=== PATIENT | male | born 1965 | race Caucasian/White ===

== ENCOUNTER 2020-01-03 12:36 | Emergency (ER) | payer OTHER, SELFPAY ==
[~2020-01-03] VITALS: Ht 182.9 cm; Wt 117.9 kg
[2020-01-03 12:36] VITALS: BP 140/69
[~2020-01-03 12:36] MED LIST: CITA10TA11 PO; ESK300 PO; HUM SUBQ; LEVAMIR; METF500T2 PO
--- NOTE | 2020-01-03 12:40 | NUR ---
54/M brought in by ambulance from [facility] for cough x1 month. Pt stated his facility wants him to be tested for COVID-19. Pt denies fever/chills, CP/SOB, n/v/d, abd pain or sore throat. Pt awake and alert, skin normal color warm and dry, rr even and unlabored. Lung sounds clear BL. S1S2 present, HR 104, ST on monitor. R BKA noted. Hx HTN, DM, HLD, R BKA.
--- NOTE | 2020-01-03 13:10 | NUR ---
Pt refusing to collect urine sample at this time, pt given water.
--- NOTE | 2020-01-03 13:10 | NUR ---
Attempted to collect blood via IV start, able to collect some blood tests but not all, laborer stores Pily made aware.
[2020-01-03 14:05] LABS: BASOPHILS # (AUTO) 0.1 K/uL (0.00-0.22); BASOPHILS % (AUTO) 1.1 % (0.0-2.0); EOSINOPHILS # (AUTO) 0.1 K/uL (0-0.4); EOSINOPHILS % (AUTO) 2.3 % (0.0-4.0); HEMATOCRIT 41.2 % (36-52); LYMPHOCYTES # (AUTO) 1.3 K/uL (2.0-11.5); LYMPHOCYTES % (AUTO) 20.7 % (20.5-51.1); MEAN CORPUSCULAR HEMOGLOBIN 33 pg (27-31); MEAN CORPUSCULAR HGB CONC 34 g/dL (33-37); MEAN CORPUSCULAR VOLUME 95.4 fL (80-94); MONOCYTES # (AUTO) 0.3 K/uL (0.8-1.0); MONOCYTES % (AUTO) 5.5 % (1.7-9.3); NEUTROPHILS # (AUTO) 4.4 K/uL (1.8-7.7); NEUTROPHILS % (AUTO) 70.4 % (42.2-75.2); PLATELET COUNT (AUTO) 223 K/uL (140-450); RED BLOOD CELL COUNT(AUTO) 4.31 MIL/uL (4.20-6.10); WHITE BLOOD COUNT (AUTO) 6.2 K/uL (4.8-10.8)
[2020-01-03 14:13] LABS: ANION GAP 15.1 (8-16); CARBON DIOXIDE 27.9 mmol/L (21-32); CREATININE 1.5 mg/dL (0.6-1.3)
[2020-01-03 14:19] LABS: TOTAL BILIRUBIN 0.6 mg/dL (0.0-1.0)
[2020-01-03] MEDS ORDERED: LEVOFLOXACIN 500 MG TAB PO ONE (14:20)
[2020-01-03] MEDS ORDERED: INSULIN REGULAR, HUMAN 100 UNIT/ML VIAL SUBQ ONE (14:20)
[2020-01-03] MEDS ORDERED: PROMETH/CODEINE 6.25-10MG/5ML 5 ML UDC PO ONE (14:20)
[2020-01-03] MEDS ORDERED: NACL 0.9% 500 ML IV ONE (14:20)
[2020-01-03 14:33] LABS: PROTHROMBIN TIME 9.2 secs (10.8-13.4)
[2020-01-03 15:15] LABS: APPEARANCE,URINE SL CLOUDY (CLEAR); BILIRUBIN,URINE NEGATIVE (NEGATIVE); BLOOD, URINE NEGATIVE (NEGATIVE); COLOR,URINE YELLOW (YELLOW); LEUKOCYTE ESTERASE ,URINE NEGATIVE (NEGATIVE); NITRITE, URINE NEGATIVE (NEGATIVE); PH,URINE 5.5 (5.0-9.0); UGLUCOSE 2+ (NEGATIVE)
[2020-01-03 15:57] VITALS: BP 135/90
--- NOTE | 2020-01-03 15:57 | NUR ---
Patient discharged with v/s stable. Written and verbal after care instructions given and explained. Gave report to Nicole from [facility]. Patient alert, oriented and verbalized understanding of instructions. Wheel Chair Assisted with to group home [facility]. All questions addressed prior to discharge. ID band removed. Patient advised to follow up with PMD. Rx of tessalon perles, albuterol inh, levaquin given. Patient educated on indication of medication including possible reaction and side effects. Opportunity to ask questions provided and answered.
== END 2020-01-03 15:57 | disposition home or self-care (01) ==
LOC: MED 12:36 → EEVIPCON 12:36 → MED 15:57
DX: J44.1 Chronic obstructive pulmonary disease with (acute) exacerbation (principal); Z20.828 Contact with and (suspected) exposure to other viral communicable diseases; E11.65 Type 2 diabetes mellitus with hyperglycemia; F17.210 Nicotine dependence, cigarettes, uncomplicated; I10 Essential (primary) hypertension; N17.9 Acute kidney failure, unspecified; Z72.0 Tobacco use; Z71.6 Tobacco abuse counseling
CPT/HCPCS: 36415; 71045; 80053; 81003; 83605; 83880; 85025; 85610; 85730; 87040; 87086; 87635; 93005; 96372; 99285; J1815; J7030; Q0092; 99284

== ENCOUNTER 2021-05-29 14:44 | Inpatient (IN) | payer OTHER, SELFPAY ==
[~2021-05-29] VITALS: Ht 188 cm; Wt 98.9 kg
[~2021-05-29 14:44] MED LIST changes: -CITA10TA11 PO; +CITA20TA15 PO; +Gauze TP; -HUM SUBQ; -LEVAMIR; +LOV40I SUBQ; -METF500T2 PO; +ROC1PM IV
[2021-05-29 14:51] VITALS: BP 152/83
--- NOTE | 2021-05-29 14:57 | NUR ---
PT W/C ASSISTED TO LOBBY
[2021-05-29] MEDS ORDERED: VANCOMYCIN PER PHARMACY MC PRN ×2 (15:50→17:50)
[2021-05-29] MEDS ORDERED: VANCOMYCIN 1GM/DEXT 5% PREMIX 200 ML IV ONE (15:50)
[2021-05-29] MEDS ORDERED: NACL 0.9% 1,000 ML IV SCH (15:50)
[2021-05-29] MEDS ORDERED: PIPERACILLIN/TAZOBACTAM 3.375 GM in DEXTROSE 5% 50 ML IV ONE (15:50)
--- NOTE | 2021-05-29 15:57 | NUR ---
Patient wheelchair to [facility]
--- NOTE | 2021-05-29 16:00 | NUR ---
Blood cultures and sample given to CPT Nat
--- NOTE | 2021-05-29 16:00 | NUR ---
Nicolasa amezcua handed to CPT Nat at ER bedside.
--- NOTE | 2021-05-29 16:06 | NUR ---
55 y/o M BIB self from the streets c/o LLE open sores and pain x 2-3 days. Patient A&Ox4, wheelchair assisted, presents with redness, pain and swelling to LLE. Patient with L toe amputation and R foot amputation. Patient reports 4/10 pain and also states a diaper rash due to sleeping in the sun. Patient denies CP, SOB, fever, chills, N/V/D, headache. warehouse logistics coordinator in place. Bed locked in lowest position, side rails x 1, call light in reach. PMH: HTN, DM, COPD, bipolar d/o Meds: Metformin, insulin humalog, Albuterol, ambien, Xanax, Lipitor NKA
--- NOTE | 2021-05-29 16:06 | NUR ---
PT BACK FROM RAD, TAKEN TO BED 9
[2021-05-29] MEDS ORDERED: PIPERACILLIN/TAZOBACTAM 3.375 GM VIAL IV ONE (16:24)
[2021-05-29 16:55] LABS: BASOPHILS # (AUTO) 0.1 K/uL (0.00-0.22); BASOPHILS % (AUTO) 0.5 % (0.0-2.0); EOSINOPHILS # (AUTO) 0.1 K/uL (0-0.4); EOSINOPHILS % (AUTO) 1.3 % (0.0-4.0); HEMOGLOBIN 12.8 g/dL (12.0-18.0); LYMPHOCYTES # (AUTO) 1.6 K/uL (2.0-11.5); LYMPHOCYTES % (AUTO) 15.1 % (20.5-51.1); MEAN CORPUSCULAR HEMOGLOBIN 29 pg (27-31); MEAN CORPUSCULAR HGB CONC 34 g/dL (33-37); MEAN CORPUSCULAR VOLUME 87.1 fL (80-94); MONOCYTES # (AUTO) 0.6 K/uL (0.8-1.0); MONOCYTES % (AUTO) 5.8 % (1.7-9.3); NEUTROPHILS # (AUTO) 8.4 K/uL (1.8-7.7); NEUTROPHILS % (AUTO) 77.3 % (42.2-75.2); PLATELET COUNT (AUTO) 373 K/uL (140-450); RED BLOOD CELL COUNT(AUTO) 4.36 MIL/uL (4.20-6.10); RED CELL DISTRIBUTION WIDTH 14.6 % (11.6-13.7); WHITE BLOOD COUNT (AUTO) 10.8 K/uL (4.8-10.8)
[2021-05-29] MEDS ORDERED: VANCOMYCIN 1,000 MG in DEXTROSE 5% 250 ML IV ONE (17:05)
[2021-05-29 17:21] LABS: ALBUMIN 3.4 g/dL (3.4-5.0); ANION GAP 10.6 (8-16); CARBON DIOXIDE 26.9 mmol/L (21-32); CREATININE 1.1 mg/dL (0.6-1.3); POTASSIUM 3.5 mmol/L (3.5-5.1); TOTAL BILIRUBIN 0.9 mg/dL (0.0-1.0)
[2021-05-29] MEDS ORDERED: ZOLPIDEM 5 MG TAB PO PRN (17:50)
[2021-05-29] MEDS ORDERED: MAG SULF 2000 MG/WATER PREMIX 50 ML IV PRN (17:50)
[2021-05-29] MEDS ORDERED: MAGNESIUM OXIDE 400 MG TAB PO PRN (17:50)
[2021-05-29] MEDS ORDERED: ACETAMINOPHEN 325 MG TAB PO PRN (17:50)
[2021-05-29] MEDS ORDERED: LORazepam 1 MG TAB PO PRN (17:50)
[2021-05-29] MEDS ORDERED: MORPHINE SULFATE 4 MG/ML SYR IVP PRN (17:50)
[2021-05-29] MEDS ORDERED: ONDANSETRON 4 MG/2 ML VIAL IVP PRN (17:50)
[2021-05-29] MEDS ORDERED: POTASSIUM CHLORIDE 10 MEQ TABER PO PRN (17:50)
[2021-05-29] MEDS ORDERED: KCL 20 MEQ/WATER INJ PREMIX 200 ML IV PRN (17:50)
--- NOTE | 2021-05-29 17:53 | NUR ---
PATIENT ADMITTED TO HOSPITAL, MED/SURG HOLD STAYING IN BED 09 UNTIL BED BECOMES AVAILABLE.
[2021-05-29] MEDS ORDERED: VANCOMYCIN 1,000 MG VIAL ONE (18:11)
[2021-05-29] MEDS: NACL 0.9% 1,000 ML IV SCH (18:40)
--- NOTE | 2021-05-29 19:20 | NUR ---
Report and transfer of care endorsed to ANDRADE Brown.
--- NOTE | 2021-05-29 20:00 | NUR ---
sitting up in BED, DIET TRAY SERVED. VOICES NO COMPLAINTS
--- NOTE | 2021-05-29 23:44 | NUR ---
RESTING IN BED WITH EYES CLOSED, RESPIRATIONS REGULAR AND UNLABORED
--- NOTE | 2021-05-30 02:00 | NUR ---
AWAKE AND ALERT. DENIES PAIN OR DISCOMFORT. SANDWICH SERVED
[2021-05-30] MEDS ORDERED: PIPERACILLIN/TAZOBACTAM 3.375 GM VIAL IV ONE ×2 (03:03→06:06)
[2021-05-30] MEDS ORDERED: VANCOMYCIN 1,000 MG VIAL ONE (03:03)
--- NOTE | 2021-05-30 04:15 | NUR ---
AWAKE, HAS BEEN INCONTINENT OF LARGE AMOUNT OF URINE. IS BECOMING AGITATED. UP TO SIDE OF BED, RESTLESS. VERY VERBAL AMD BELIGERANT. LINENS CHANGED, REFUSES TO GET INTO PATIENT GOWN.
[2021-05-30] MEDS: PIPERACILLIN/TAZOBACTAM 3.375 GM in DEXTROSE 5% 50 ML IV SCH ×5 (04:59→23:54)
[2021-05-30] MEDS: VANCOMYCIN 1,000 MG in DEXTROSE 5% 250 ML IV SCH ×4 (05:00→20:59)
[2021-05-30] MEDS: NACL 0.9% 1,000 ML IV SCH ×2 (06:20→17:15)
[2021-05-30 06:51] LABS: BASOPHILS # (AUTO) 0.1 K/uL (0.00-0.22); BASOPHILS % (AUTO) 0.8 % (0.0-2.0); EOSINOPHILS # (AUTO) 0.2 K/uL (0-0.4); EOSINOPHILS % (AUTO) 2.7 % (0.0-4.0); HEMATOCRIT 38.7 % (36-52); LYMPHOCYTES # (AUTO) 1.4 K/uL (2.0-11.5); LYMPHOCYTES % (AUTO) 15.8 % (20.5-51.1); MEAN CORPUSCULAR HEMOGLOBIN 29 pg (27-31); MEAN CORPUSCULAR HGB CONC 34 g/dL (33-37); MEAN CORPUSCULAR VOLUME 87.2 fL (80-94); MONOCYTES # (AUTO) 0.5 K/uL (0.8-1.0); MONOCYTES % (AUTO) 5.2 % (1.7-9.3); NEUTROPHILS # (AUTO) 6.6 K/uL (1.8-7.7); NEUTROPHILS % (AUTO) 75.5 % (42.2-75.2); PLATELET COUNT (AUTO) 319 K/uL (140-450); RED BLOOD CELL COUNT(AUTO) 4.43 MIL/uL (4.20-6.10); RED CELL DISTRIBUTION WIDTH 14.4 % (11.6-13.7); WHITE BLOOD COUNT (AUTO) 8.7 K/uL (4.8-10.8)
[2021-05-30 07:07] LABS: CARBON DIOXIDE 26.8 mmol/L (21-32); CREATININE 1.1 mg/dL (0.6-1.3); POTASSIUM 3.8 mmol/L (3.5-5.1)
--- NOTE | 2021-05-30 07:12 | NUR ---
PATIENT HAS BEEN SCREENED AND CATEGORIZED LOW NUTRITION RISK. PATIENT WILL BE SEEN WITHIN 7 DAYS OF ADMISSION. 06/06/21 KAITLIN SALAZAR MS, RDN
--- NOTE | 2021-05-30 07:15 | NUR ---
REPORT RECEIVED FROM KANIKA ZAFAR FOR CONTINUITY OF CARE
--- NOTE | 2021-05-30 07:40 | NUR ---
Patient will be admitted to care of DR VELA. Admited to [facility]. Will go to room 111-B. Belongings list completed. Report to TEJAS ZAFAR.
--- NOTE | 2021-05-30 07:40 | NUR ---
PT ARRIVED TO UNIT VIA WHEELCHAIR. WHEELCHAIR IS THE PTS OWN BELONGINGS. PT AMBULATED TO THE BED WITH ASSISTANCE. PT IS TALKING TO HIMSELF AND APPEARS TO BE CONFUSED. A&OX2. ON RA WITH BREATHING UNLABORED. SKIN IS WARM AND DRY. RIGHT BKA. LEFT LE TOES AMPUTATED. LEFT LEG CELLULITIS WITH OPEN WOUND, PEDIATRIC AUDIOLOGIST. IV IS IN THE RIGHT AC 20 GAUGE SALINE LOCKED. PT IS STABLE AT THIS TIME. PLAN OF CARE DISCUSSED.
[2021-05-30 08:00] VITALS: BP 125/80
[2021-05-30] MEDS: DOCUSATE SODIUM 100 MG GELCAP PO SCH (09:27)
[2021-05-30] MEDS: ENOXAPARIN 40 MG/0.4 ML SYR SUBQ SCH (09:30)
--- NOTE | 2021-05-30 09:33 | NUR ---
SPOKE TO PHARMACIST, RICK, AND HE INSTRUCTED ME TO GIVE THE VANCO ABX AT 1300 INSTEAD OF 10 AM SINCE THE CARE ATTENDANT NURSE GAVE THE MEDICATION LATE.
--- NOTE | 2021-05-30 10:00 | NUR ---
PICTURES WERE TAKEN OF LEFT LOWER EXTREMITY AND LEFT FOOT. OPEN WOUNDS WERE NOTED. CLEANSED WITH NS AND PATTED DRY. WOUNDS WERE LEFT REJI. MILD PAIN NOTED ON PALPATION OF WOUND.
--- NOTE | 2021-05-30 11:00 | NUR ---
CALLED SECURITY TO PLACEMENT MANAGER POCKET KNIFE THAT WAS FOUND ON PT'S WHEELCHAIR. KNIFE WAS COLLECTED BY SECURITY AND STICKER WITH NAME WAS PLACED ON BAG.
--- NOTE | 2021-05-30 11:33 | NUR ---
ROUNDED ON PT. HE IS TALKING TO HIMSELF, MUMBLING. PT IS CONFUSED. A&OX2. KNOWS HIS NAME AND WHERE HE IS AT. NO DISTRESS NOTED. PT DENIES PAIN.
[2021-05-30] MEDS: HYDROcodone/APAP 5/325 MG 1 TAB TAB PO PRN ×2 (12:09→18:09)
--- NOTE | 2021-05-30 12:09 | NUR ---
PT STATES HE HAS PAIN AT A SCALE OF 6/10. PAIN IS IN HIS LEFT LOWER EXTREMITY AND ACHING. PT WAS GIVEN NORCO FOR PAIN.
--- NOTE | 2021-05-30 13:44 | NUR ---
ROUNDED ON PT. HE IS TALKING ON THE PHONE TO HIS BROTHER. NO DISTRESS NOTED. WOUND WAS CLEANSED WITH NS AND PATTED DRY. 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 PT IS STABLE. DENIES PAIN.
--- NOTE | 2021-05-30 15:30 | NUR ---
PT WAS GIVEN BED BATH BY KAMILLA WILKINSON. PT IS FOUL SMELLING PRIOR TO BATH. PT REFUSED CERTAIN AREAS OF BED BATH. PT IS DONE AND NOW CALLING FRIEND ON PHONE.
[2021-05-30 16:00] VITALS: BP 137/71
--- NOTE | 2021-05-30 17:30 | NUR ---
PT IS AWAKE AND CONFUSED. TALKING TO SELF BUT ABLE TO MAKE NEEDS KNOWN. BREATHING IS UNLABORED ON RA. PT DENIES PAIN. WILL CONTINUE TO MONITOR.
--- NOTE | 2021-05-30 18:09 | NUR ---
PT STATES HE HAS PAIN AT A SCALE OF 6/10 IN THE LEFT LOWER EXTREMITY. PT RECEIVED NORCO FOR PAIN ORDERED. WILL MONITOR PAIN.
--- NOTE | 2021-05-30 19:05 | NUR ---
ENDORSED PT TO DIALYSIS PATIENT CARE TECHNICIAN NURSE FOR CONTINUITY OF CARE. PT IS STABLE AT THIS TIME. PLAN OF CARE DISCUSSED.
[2021-05-30 20:00] VITALS: BP 136/72
--- NOTE | 2021-05-30 20:00 | NUR ---
RECEIVED BEDSIDE REPORT FROM DAY RN FOR CONTINUITY OF CARE. PATIENT ALERT, AWAKE , ORIENTED X3. NO SIGN AND SYMPTOMS OF DISTRESS NOTED AND NO COMPLAIN AT THIS TIME. FALL PRECAUTION IMPLEMENTED. VSS, AFEBRILE, SATING 98% ON RA. CALL LIGHT WITHIN REACH. WILL CONTINUE POC AND OBSERVATION.
--- NOTE | 2021-05-30 22:00 | NUR ---
DUE MEDICATIONS GIVEN ORDERED AND PT TOLERATED IT WELL. NO ADVERSE DRUG REACTION NOTED. WILL CONTINUE TO OBSERVE THE PATIENT.
--- NOTE | 2021-05-31 02:13 | NUR ---
PATIENT ASLEEP AT THIS TIME. VISIBLE CHEST RISE AND FALL NOTED. SAFETY MEASURES IN PLACE.
[2021-05-31 04:00] VITALS: BP 142/79
[2021-05-31] MEDS: VANCOMYCIN 1,000 MG in DEXTROSE 5% 250 ML IV SCH ×2 (04:49→14:55)
[2021-05-31] MEDS: NACL 0.9% 1,000 ML IV SCH (06:15)
[2021-05-31] MEDS: PIPERACILLIN/TAZOBACTAM 3.375 GM in DEXTROSE 5% 50 ML IV SCH ×2 (06:15→13:39)
--- NOTE | 2021-05-31 06:22 | NUR ---
NO ACUTE EVENT THROUGHOUT THE NIGHT. NOT IN ANY DISTRESS AND NO COMPLAIN AT THIS TIME. ALL NEEDS ATTENDED. CALL LIGHT WITHIN REACH WILL ENDORSE THE PT TO THE ONCOMING RN FOR CONTINUITY OF CARE.
[2021-05-31 07:01] LABS: BASOPHILS # (AUTO) 0.1 K/uL (0.00-0.22); BASOPHILS % (AUTO) 1.2 % (0.0-2.0); EOSINOPHILS # (AUTO) 0.3 K/uL (0-0.4); EOSINOPHILS % (AUTO) 3.9 % (0.0-4.0); HEMATOCRIT 35.8 % (36-52); HEMOGLOBIN 11.9 g/dL (12.0-18.0); LYMPHOCYTES # (AUTO) 1.6 K/uL (2.0-11.5); LYMPHOCYTES % (AUTO) 24.1 % (20.5-51.1); MEAN CORPUSCULAR HEMOGLOBIN 29 pg (27-31); MEAN CORPUSCULAR HGB CONC 33 g/dL (33-37); MEAN CORPUSCULAR VOLUME 88.2 fL (80-94); MONOCYTES # (AUTO) 0.4 K/uL (0.8-1.0); MONOCYTES % (AUTO) 6.8 % (1.7-9.3); NEUTROPHILS # (AUTO) 4.2 K/uL (1.8-7.7); PLATELET COUNT (AUTO) 267 K/uL (140-450); RED BLOOD CELL COUNT(AUTO) 4.06 MIL/uL (4.20-6.10); RED CELL DISTRIBUTION WIDTH 14.5 % (11.6-13.7); WHITE BLOOD COUNT (AUTO) 6.5 K/uL (4.8-10.8)
[2021-05-31 07:15] LABS: ANION GAP 7.6 (8-16); CARBON DIOXIDE 29.5 mmol/L (21-32); CREATININE 1.1 mg/dL (0.6-1.3); POTASSIUM 4.1 mmol/L (3.5-5.1)
--- NOTE | 2021-05-31 07:15 | NUR ---
RECEIVED BEDSIDE REPORT FROM UNIX CONSULTANT NURSE FOR CONTINUITY OF CARE. PT IS ASLEEP. CHEST RISE AND FALL IS SYMMETRICAL. ON RA WITH BREATHING UNLABORED. URINAL AT BEDSIDE FOR VOIDING. PERIODS OF INCONTINENCE. SKIN IS WARM AND DRY. RIGHT BKA AND LEFT EXTREMITY TOES AMPUTATED. LEFT LOWER EXTREMIITY OPEN WOUND WITH CELLULITIS NOTED. IV IS IN THE LEFT AC 20 GAUGE RUNNING FLUIDS ORDERED. PT IS STABLE AT THIS TIME. PLAN OF CARE DISCUSSED.
--- NOTE | 2021-05-31 07:23 | NUR ---
ENDORSED PATIENT TO DAY RN FOR CONTINUITY OF CARE. PATIENT STABLE. SIGNING OFF.
[2021-05-31 08:00] VITALS: BP 158/87
[2021-05-31] MEDS: DOCUSATE SODIUM 100 MG GELCAP PO SCH (08:24)
[2021-05-31] MEDS: ENOXAPARIN 40 MG/0.4 ML SYR SUBQ SCH (08:25)
--- NOTE | 2021-05-31 10:00 | NUR ---
PT WAS BEING CHANGED AND REPOSITIONED DUE TO BOWEL MOVEMENT. PT ACTING VERY ERRATIC. PT SCREAMING, TALKING TO HIMSELF, AND JUMPING OUT OF BED TO WHEELCHAIR. PT WAS THREATENING STAFF AND SECURITY WAS CALLED. SECURITY AT BEDSIDE. PT IN WHEELCHAIR TALKING TO SELF.
[2021-05-31] MEDS: HYDROcodone/APAP 5/325 MG 1 TAB TAB PO PRN (10:16)
--- NOTE | 2021-05-31 10:16 | NUR ---
PT WAS GIVEN NORCO FOR PAIN ORDERED. PT STATED PAIN WAS IN HIS LEFT FOOT AT A SCALE OF 6/10. WILL CONTINUE TO MONITOR PAIN.
--- NOTE | 2021-05-31 12:00 | NUR ---
PT IS IN WHEELCHAIR GOING AROUND UNIT WITH MASK ON. NO DISTRESS NOTED. PT DENIES PAIN. PT IS TALKING TO HIMSELF AND APPEARS CONFUSED. DRY DIAPER IN PLACE. WILL CONTINUE TO MONITOR.
[2021-05-31 14:00] VITALS: BP 128/65
--- NOTE | 2021-05-31 14:04 | NUR ---
PT WAS VERY AGITATED AND STATED HE WAS HAVING ANXIETY. PT THREW ITEMS ALL OVER ROOM AND WAS UP IN WHEELCHAIR. PT WAS GIVEN ATIVAN FOR ANXIETY ORDERED. BP WAS 145/75 PRIOR TO ADMINISTRATION OF MEDICATION.
--- NOTE | 2021-05-31 14:45 | NUR ---
PT PULLED OUT IV IN THE LEFT AC. BLEEDING WAS CONTROLLED. NEW IV WAS PLACED ON THE LEFT FOREARM 22 GAUGE. PATENT AND INTACT. VANCOMYCIN ABX WILL BE STARTED SHORTLY.
[2021-05-31] MEDS ORDERED: SULF-58 PO (15:17)
[2021-05-31] MEDS ORDERED: AMOX-999 PO (15:17)
--- NOTE | 2021-05-31 17:45 | NUR ---
PT WAS INFORMED OF DISCHARGE BY DOCTOR. PAPER WORK WAS COMPLETED AND PT VERBALIZED UNDERSTANDING. ASKED PT IF HE WOULD LIKE ME TO CALL HIS BROTHER TO PICK HIM UP AND PT DENIED. PT STATED HE ALREADY CALLED HIM. OFFERED HOMELESS RESOURCES AND PT DENIED. PT WAS GIVEN CLOTHING PERSONAL CLOTHING WAS SOILED. PT COLLECTED PERSONAL BELONGINGS. Addendum: 05/31/21 at 1840 by Nicole Monsivais RN CHARGE NURSETOMMY RN, AWARE.
--- NOTE | 2021-05-31 18:15 | NUR ---
DISCHARGE INSTRUCTIONS WERE PROVIDED AND PT VERBALIZED UNDERSTANDING. IV WAS REMOVED AND BLEEDING WAS CONTROLLED. ID BAND WAS REMOVED. VS WERE STABLE. PT IS STABLE AT THIS TIME. PT IS ALERT AND AWAKE. DISCHARGED WITH WHEELCHAIR BY ARCO APPLIQUE SEWER.
--- NOTE | 2021-06-01 08:30 | NUR ---
WOUND CONSULT NOT DONE. PT. DISCHARGED.
== END 2021-05-31 18:35 | disposition home or self-care (01) | DRG 383 ==
LOC: MED 14:44 → MTU 17:53 → EDUNIT# 17:53 → MTU 05-30 06:38
PROVIDERS: ADMIT Hospitalist; ATTEND Hospitalist
DX: L03.116 Cellulitis of left lower limb (principal); E11.42 Type 2 diabetes mellitus with diabetic polyneuropathy; E11.51 Type 2 diabetes mellitus with diabetic peripheral angiopathy without gangrene; J44.9 Chronic obstructive pulmonary disease, unspecified; I10 Essential (primary) hypertension; F31.9 Bipolar disorder, unspecified; Z20.822 Contact with and (suspected) exposure to COVID-19; E78.5 Hyperlipidemia, unspecified; Z89.511 Acquired absence of right leg below knee; Z79.84 Long term (current) use of oral hypoglycemic drugs; Z89.422 Acquired absence of other left toe(s)
CPT/HCPCS: 36415; 73590; 80048; 80053; 80202; 83605; 85025; 85651; 86140; 87040; 87081; 96365; 96367; 99285; J1650; J2543; J3370; J7060

== ENCOUNTER 2021-07-05 17:29 | Emergency (ER) | payer OTHER, SELFPAY ==
[~2021-07-05] VITALS: Ht 165.1 cm; Wt 77.1 kg
[~2021-07-05 17:29] MED LIST changes: +AMOX-999 PO; -Gauze TP; -LOV40I SUBQ; -ROC1PM IV; +SULF-58 PO
--- NOTE | 2021-07-05 17:32 | NUR ---
BIBA TO BED
[2021-07-05 17:39] VITALS: BP 152/91
--- NOTE | 2021-07-05 17:42 | NUR ---
ERMD AT BEDSIDE EXAMINING PT
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
--- NOTE | 2021-07-05 18:41 | NUR ---
PT URINATED 800 ML. PT IS IN BEDREST.
[2021-07-05 19:22] VITALS: BP 152/91
--- NOTE | 2021-07-05 19:22 | NUR ---
Patient discharged with v/s stable. Written and verbal after care instructions given and explained. Patient alert, oriented and verbalized understanding of instructions. Wheel Chair Assisted with to LOBBY. All questions addressed prior to discharge. ID band removed. Patient advised to follow up with PMD. Opportunity to ask questions provided and answered.
== END 2021-07-05 19:22 | disposition home or self-care (01) ==
LOC: MED 17:29
DX: S01.419A Laceration without foreign body of unspecified cheek and temporomandibular area, initial encounter (principal); E11.9 Type 2 diabetes mellitus without complications; I10 Essential (primary) hypertension; Y04.8XXA Assault by other bodily force, initial encounter; Y93.89 Activity, other specified; Y92.89 Other specified places as the place of occurrence of the external cause; Y99.8 Other external cause status
CPT/HCPCS: 70450; 99284

== ENCOUNTER 2021-07-19 21:59 | Emergency (ER) | payer OTHER ==
[~2021-07-19] VITALS: Ht 165.1 cm; Wt 77.1 kg
[2021-07-19 22:00] VITALS: BP 135/85
--- NOTE | 2021-07-19 22:02 | NUR ---
PT OFFLOADED TO LOBBY IN STABLE CONDITION.
--- NOTE | 2021-07-19 23:50 | NUR ---
PT W/C ASSISTED TO BED 06.
--- NOTE | 2021-07-20 00:07 | NUR ---
BIBA FROM HOME C/O BILATERAL LEG PAIN. PER PT RAN OUT OF GABAPENTIN, UNABLE TO SEE PCP. PT IS IN OUT OF SLEEP. MEDHX- DM, COPD, BIPOLAR, SCHIZOPHRENIA, RT BKA AMUPUTATION LEFT TOES AMPUTATION NKA BLOOD SUGAR 172
[2021-07-20] MEDS ORDERED: KETOROLAC 60 MG/2 ML VIAL IM ONE (00:25)
[2021-07-20] MEDS ORDERED: GABA300C PO (00:47)
[2021-07-20 01:15] VITALS: BP 110/77
--- NOTE | 2021-07-20 01:15 | NUR ---
Patient discharged with v/s stable. Written and verbal after care instructions given and explained. Patient alert, oriented and verbalized understanding of instructions. Wheel Chair Assisted with steady gait. All questions addressed prior to discharge. ID band removed. Patient advised to follow up with PMD. Rx of GABAPENTIN given. Patient educated on indication of medication including possible reaction and side effects. Opportunity to ask questions provided and answered.
== END 2021-07-20 01:15 | disposition home or self-care (01) ==
LOC: MED 21:59
DX: M79.604 Pain in right leg (principal); G89.29 Other chronic pain; I10 Essential (primary) hypertension; E11.9 Type 2 diabetes mellitus without complications; Z98.890 Other specified postprocedural states; Z79.899 Other long term (current) drug therapy; Z79.2 Long term (current) use of antibiotics
CPT/HCPCS: 96372; 99283; J1885

== ENCOUNTER 2021-08-16 18:41 | Inpatient (IN) | payer OTHER ==
[~2021-08-16] VITALS: Ht 185.4 cm; Wt 94.8 kg
[~2021-08-16 18:41] MED LIST changes: +GABA300C PO
[2021-08-16 18:48] VITALS: BP 165/92
[2021-08-16 21:21] LABS: BASOPHILS % (AUTO) 0.8 % (0.0-2.0); EOSINOPHILS # (AUTO) 0.2 K/uL (0-0.4); EOSINOPHILS % (AUTO) 3.5 % (0.0-4.0); HEMATOCRIT 37.6 % (36-52); HEMOGLOBIN 12.5 g/dL (12.0-18.0); LYMPHOCYTES # (AUTO) 1.1 K/uL (2.0-11.5); LYMPHOCYTES % (AUTO) 21.1 % (20.5-51.1); MEAN CORPUSCULAR HEMOGLOBIN 29 pg (27-31); MEAN CORPUSCULAR HGB CONC 33 g/dL (33-37); MEAN CORPUSCULAR VOLUME 87.2 fL (80-94); MONOCYTES # (AUTO) 0.4 K/uL (0.8-1.0); MONOCYTES % (AUTO) 7.9 % (1.7-9.3); NEUTROPHILS # (AUTO) 3.5 K/uL (1.8-7.7); NEUTROPHILS % (AUTO) 66.7 % (42.2-75.2); PLATELET COUNT (AUTO) 259 K/uL (140-450); RED BLOOD CELL COUNT(AUTO) 4.31 MIL/uL (4.20-6.10); RED CELL DISTRIBUTION WIDTH 14.9 % (11.6-13.7); WHITE BLOOD COUNT (AUTO) 5.2 K/uL (4.8-10.8)
[2021-08-16 21:27] LABS: PROTHROMBIN TIME 8.9 secs (10.8-13.4)
[2021-08-16 21:28] LABS: ALBUMIN 3.4 g/dL (3.4-5.0); ANION GAP 11.7 (8-16); CARBON DIOXIDE 29.5 mmol/L (21-32); CREATININE 0.8 mg/dL (0.6-1.3); POTASSIUM 4.2 mmol/L (3.5-5.1); TOTAL BILIRUBIN 0.3 mg/dL (0.0-1.0)
--- NOTE | 2021-08-16 21:38 | NUR ---
PT TAKEN TO ER BED 09
[2021-08-16] MEDS ORDERED: VANCOMYCIN 1,000 MG in DEXTROSE 5% 250 ML IV ONE (21:40)
[2021-08-16] MEDS ORDERED: cefTRIAXone 2,000 MG in DEXTROSE 5% 100 ML IV ONE (21:40)
[2021-08-16] MEDS ORDERED: MORPHINE SULFATE 4 MG/ML SYR IVP PRN (22:15)
[2021-08-16] MEDS ORDERED: VANCOMYCIN PER PHARMACY MC PRN (22:15)
[2021-08-16] MEDS ORDERED: MORPHINE SULFATE 2 MG/ML SYR IVP PRN (22:15)
[2021-08-16] MEDS ORDERED: cefTRIAXone 2,000 MG VIAL ONE (22:32)
--- NOTE | 2021-08-16 22:43 | NUR ---
55 Y/O M BIB SELF W C/O WOUND TO L FOOT + SWELLING. PT HAS R FOOT AMPUTATION. PT DENIES ANY PAIN. WOUND NOTED TO L FOOT NO BLEEDING, SWELLING NOTED, WOUND SEEMS TO HAVE A THIN HEALED LAYER ON IT. PT LAYING IN BED LOCKED IN LOWEST POSITION W X2 SIDERAILS UP. BREATHING EVEN AND UNLABORED. NAD NOTED, WILL CONTINUE TO MONITOR. PMH: HTN,DM2, BIPOLAR NKA
--- NOTE | 2021-08-17 00:01 | NUR ---
PT APPEARS TO BE RESTING W EYES CLOSED. BREATHING EVEN AND UNLABORED. NAD NOTED, WILL CONTINUE TO MONITOR. BED LOCKED IN LOWEST POSTION W X2 SIDERAILS UP FOR PT SAFETY.
--- NOTE | 2021-08-17 00:55 | NUR ---
CALLED [facility] TO GIVE REPORT AT THIS TIME. NO ANSWER.
[2021-08-17] MEDS ORDERED: VANCOMYCIN 1,000 MG VIAL ONE (01:10)
[2021-08-17] MEDS: NACL 0.9% 1,000 ML IV SCH ×4 (01:29→18:07)
--- NOTE | 2021-08-17 01:53 | NUR ---
SPOKE W ANDRADE RAIN TO GIVE REPORTS. PER KOFFI WILL CALL ME BACK WHEN READY FOR REPORT.
--- NOTE | 2021-08-17 02:07 | NUR ---
Pt report given to ANDRADE RAIN. Transfer of care at this time.
--- NOTE | 2021-08-17 03:05 | NUR ---
PT TRANSFERRED TO TELE BY ANDRADE BOGGS , AND ANDRADE MATHEW AT THIS TIME.
--- NOTE | 2021-08-17 03:05 | NUR ---
Patient will be admitted to care of . Admited to TELE[facility]RY. Will go to [id number]. Belongings list completed. Report to ANDRADE RAIN.
[2021-08-17 03:10] VITALS: BP 156/98
[2021-08-17] MEDS ORDERED: VANCOMYCIN 1GM/DEXT 5% PREMIX 200 ML IV SCH (06:00)
--- NOTE | 2021-08-17 07:20 | NUR ---
RECEIVED REPORT FROM IS SUPPORT ANALYST NURSE FOR CONTINUITY OF CARE. PT ASLEEP NOT ON ANY DISTRESS. WITH LAC G 18 RUNNING WITH NS AT 120/ HOUR. ALL SAFETY MEASURE IN PLACE. CALL LIGHT WITH IN EASY REACH.
--- NOTE | 2021-08-17 07:56 | NUR ---
PATIENT TO ROOM 0310 FROM E.R AWAKE ALERTX4 HAS LEFT FOOT WOUND PICTURES TAKEN HAS RIGHT BELOW THE KNEE AMPUTEE LUNG CLEAR ON ROOM AIR NKA. TEMP 98.7 99 HEART RATE 156/98 SAT 97% NO C/O OF PAIN PATIENT NPO.
[2021-08-17 08:00] VITALS: BP 163/85
--- NOTE | 2021-08-17 09:15 | NUR ---
PODIATRY AT BED SIDE.
--- NOTE | 2021-08-17 09:24 | NUR ---
WOUND NURSE AT BED SIDE.
[2021-08-17] MEDS: VANCOMYCIN 1,000 MG in DEXTROSE 5% 250 ML IV SCH ×2 (09:27→18:08)
--- NOTE | 2021-08-17 09:28 | NUR ---
PT AWAKE ALERT GIVEN IV ANTIBIOTIC BY RN TOLERATED WELL. NO ADVERSE REACTION NOTED.
--- NOTE | 2021-08-17 09:52 | NUR ---
WOUND CARE EVALUATION NOTE: PER PRIMARY RN REQUEST, LLE WOUNDS ASSESSED. LEFT LOWER LEG, ANDRÉS-ANKLE CELLULITIS, FULL THICKNESS SKIN LOSS 3X2X0.3CM, IRREGULAR SHAPE, WOUND BED 100% PALE PINK TISSUE, DRY WOUND BED, NO ODOR, WOUND EDGE DRY SCABS FLAT AND ATTACHED, ANDRÉS WOUND SKIN DRY SCABS, ERYTHEMA, NO SWELLING WITH OLD DRY SCABS PAIN 0/10. RIGHT LE BKA, LEFT FOOT TMA, LEFT FOOT PLANTAR AREA WITH A DIABETIC ULCER 2X2X0.2CM WOUND BED 100% PALE PINK TISSUE, DRY WOUND BED, NO ODOR, WOUND EDGE FLAT AND ATTACHED, ANDRÉS WOUND SKIN DRY AND INTACT. POC DISCUSSED WITH PT. PT. VERBALIZES UNDERSTANDING. POC DISCUSSED WITH PRIMARY RN. TIRE WORKER SEEM PT. BUT NO ORDER PLACED. RECOMMENDATIONS: -LLE ULCERS AND LEFT PLANTAR DIABETIC ULCER WOUNDS CLEANSE WITH WOUND CARE SOLUTION, PAT DRY, APPLY HYDROGEL WITH OIL EMULSION DRESSING, COVER WITH DRY DRESSING THEN WRAP WITH KERLIX ROLL DRESSING, SECURE WITH TAPE DAILY AND PRN IF SOILING.
--- NOTE | 2021-08-17 09:53 | NUR ---
WOUND NURSE AT BED SIDE.
--- NOTE | 2021-08-17 10:21 | NUR ---
IV ANTIBIOTIC GIVEN BY ANDRADE.
[2021-08-17] MEDS ORDERED: ZOLPIDEM 5 MG TAB PO PRN (10:25)
[2021-08-17] MEDS ORDERED: LORazepam 2 MG/ML VIAL IM/IVP PRN (10:25)
[2021-08-17] MEDS ORDERED: DOCUSATE SODIUM 100 MG GELCAP PO PRN (10:25)
[2021-08-17] MEDS ORDERED: POTASSIUM CHLORIDE 10 MEQ TABER PO PRN (10:25)
[2021-08-17] MEDS ORDERED: ONDANSETRON 4 MG/2 ML VIAL IM/IVP PRN (10:25)
[2021-08-17] MEDS ORDERED: GABAPENTIN 300 MG CAP PO PRN (10:25)
[2021-08-17] MEDS ORDERED: MAG SULF 2000 MG/WATER PREMIX 50 ML IV PRN (10:25)
[2021-08-17] MEDS ORDERED: ACETAMINOPHEN 325 MG TAB PO PRN (10:25)
--- NOTE | 2021-08-17 11:50 | NUR ---
DR. VU GAVE SEEN AND EXAMINED PT WITH NEW ORDER FOR CCHO DIET. ORDER NOTED AND CARRIED OUT PT. AWARE.
--- NOTE | 2021-08-17 12:52 | NUR ---
PATIENT BLOOD PRESSURE 152/90, HR 17, RR 17, TEMP 98.5, O2 99%. TELE 88 SR.
[2021-08-17 13:12] LABS: BASOPHILS % (AUTO) 0.7 % (0.0-2.0); EOSINOPHILS # (AUTO) 0.1 K/uL (0-0.4); EOSINOPHILS % (AUTO) 2.9 % (0.0-4.0); HEMATOCRIT 34.6 % (36-52); HEMOGLOBIN 11.7 g/dL (12.0-18.0); LYMPHOCYTES # (AUTO) 0.9 K/uL (2.0-11.5); LYMPHOCYTES % (AUTO) 17.5 % (20.5-51.1); MEAN CORPUSCULAR HEMOGLOBIN 29 pg (27-31); MEAN CORPUSCULAR HGB CONC 34 g/dL (33-37); MONOCYTES # (AUTO) 0.4 K/uL (0.8-1.0); MONOCYTES % (AUTO) 8.8 % (1.7-9.3); NEUTROPHILS # (AUTO) 3.6 K/uL (1.8-7.7); NEUTROPHILS % (AUTO) 70.1 % (42.2-75.2); PLATELET COUNT (AUTO) 223 K/uL (140-450); RED BLOOD CELL COUNT(AUTO) 3.98 MIL/uL (4.20-6.10); RED CELL DISTRIBUTION WIDTH 14.9 % (11.6-13.7); WHITE BLOOD COUNT (AUTO) 5.1 K/uL (4.8-10.8)
--- NOTE | 2021-08-17 13:50 | NUR ---
PATIENT SLEEPING. BREATHING EVEN AND UNLABORED. NO ACUTE DISTRESS NOTED. PATIENT ON ROOM AIR. ALL SAFETY MEASURES IN PLACE. CALL LIGHT WITHIN REACH. WILL CONTINUE TO MONITOR.
[2021-08-17] MEDS: SKINTEGRITY HYDROGEL TP SCH (13:52)
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
[2021-08-17 16:00] VITALS: BP 158/86
--- NOTE | 2021-08-17 16:34 | NUR ---
PATIENT HAS BEEN SCREENED AND CATEGORIZED MODERATE NUTRITION RISK. PATIENT WILL BE SEEN WITHIN 3-5 DAYS OF ADMISSION. 08/17/21 08/21/[address]
--- NOTE | 2021-08-17 16:58 | NUR ---
PT ON STABLE CONDITION ALL SAFETY MEASURE INTACT. CALL LIGHT WITH IN EASY REACH.
--- NOTE | 2021-08-17 18:16 | NUR ---
IV ANTIBIOTIC VANCO GIVEN BY ANDRADE.
--- NOTE | 2021-08-17 18:54 | NUR ---
PT ASLEEP BUT EASY AWAKE. ON STABLE CONDITION IV ATB INFUSING AT THIS TIME NO ADVERSE REACTION NOTED. WILL ENDORSE TO SIGNAL HELPER FOR CONTINUITY OF CARE.
--- NOTE | 2021-08-17 19:19 | NUR ---
ENDORSED TO SLIDE MAKER NURSE FOR CONTINUITY OF PATIENT CARE. PATIENT STABLE.
--- NOTE | 2021-08-17 19:30 | NUR ---
RECEIVED REPORT FROM AM SHIFT AT BEDSIDE FOR CONTINUITY OF CARE, PT IN STABLE CONDITION. PT IS LYING IN BED WITH EYES CLOSED RESPIRATIONS EVEN AND UNLABORED. HE HAS A RIGHT F/A 22G INTACT AND RUNNING NORMAL SALINE AT 120MLS/HR. ALL FALLS PRECAUTIONS IN PLACE.
--- NOTE | 2021-08-17 20:00 | NUR ---
PT IN BED RESTING WITH EYES CLOSED BUT AROUSABLE TO NAME AND LIGHT TOUCH. CAN REPORTED V/S FOLLOWS: T 98.9 P 83 R 18 B/P 166/91 02 97. WILL RECHECK BLOOD PRESSURE OF PATIENT. ALL ORDERED PRECAUTIONS IN PLACE.
--- NOTE | 2021-08-17 21:50 | NUR ---
RETAKE OF B/P WAS 157/94. PT GIVEN ORDERED LITHIUM CARBONATE FOR HIS BIPOLAR DISORDER WELL HEPARIN SQ FOR DVT PREVENTION. PT VERBALIZED UNDERSTANDING OF ORDERED MEDICATION. ALL ORDERED PRECAUTIONS IN PLACE.
[2021-08-17] MEDS: LITHIUM CARBONATE 300 MG TAB PO SCH (22:26)
--- NOTE | 2021-08-17 22:35 | NUR ---
PT GIVEN ORDERED MORPHINE 2MG IVP FOR MODERATE PAIN IN LEFT FOOT.
[2021-08-18] VITALS: BP 163/88
--- NOTE | 2021-08-18 01:00 | NUR ---
PT IN BED ASLEEP FLUIDS RUNNING ORDERED.
--- NOTE | 2021-08-18 01:30 | NUR ---
ROUNDS DONE, PT RESTING IN BED NO C/PO VOICED ALL REQUESTED NEEDS ATTENDED BY STAFF.
[2021-08-18] MEDS: VANCOMYCIN 1,000 MG in DEXTROSE 5% 250 ML IV SCH (02:02)
--- NOTE | 2021-08-18 02:30 | NUR ---
VANCOCIN HUNG AND RUNNING ORDERED.
[2021-08-18 06:09] LABS: BASOPHILS % (AUTO) 0.8 % (0.0-2.0); EOSINOPHILS # (AUTO) 0.1 K/uL (0-0.4); EOSINOPHILS % (AUTO) 3.7 % (0.0-4.0); HEMATOCRIT 36.5 % (36-52); HEMOGLOBIN 12.2 g/dL (12.0-18.0); LYMPHOCYTES # (AUTO) 1.1 K/uL (2.0-11.5); LYMPHOCYTES % (AUTO) 28.7 % (20.5-51.1); MEAN CORPUSCULAR HEMOGLOBIN 29 pg (27-31); MEAN CORPUSCULAR HGB CONC 33 g/dL (33-37); MONOCYTES # (AUTO) 0.3 K/uL (0.8-1.0); MONOCYTES % (AUTO) 8.3 % (1.7-9.3); NEUTROPHILS # (AUTO) 2.3 K/uL (1.8-7.7); NEUTROPHILS % (AUTO) 58.5 % (42.2-75.2); PLATELET COUNT (AUTO) 219 K/uL (140-450)
[2021-08-18 06:33] LABS: CHOL/HDL RATIO 2.5 (1-4.5); MAGNESIUM 1.8 mg/dL (1.8-2.4); PHOSPHORUS 3.5 mg/dL (2.5-4.9)
[2021-08-18 06:38] LABS: ANION GAP 10.1 (8-16); CARBON DIOXIDE 28.7 mmol/L (21-32); CREATININE 0.9 mg/dL (0.6-1.3); POTASSIUM 3.8 mmol/L (3.5-5.1)
--- NOTE | 2021-08-18 06:50 | NUR ---
TEXTED MD VU DUE TO PT B/P GETTING ELEVATED. PT DENIES ANY PAIN OR DISTRESS. ENDORSED TO AM SHIFT TO WATCH FOR MD COMMUNICATION AND F/U WITH BLOOD PRESSURES.
--- NOTE | 2021-08-18 07:20 | NUR ---
PT ASLEEP NOT ON ANY DISCOMFORT. RECEIVED ENDORSEMENT FROM PROGRAM COUNSELOR NURSE FOR CONTUITY OF CARE. ALL SAFETY MEASURE IN PLACE. CALL LIGHT WITH IN EASY REACH.
[2021-08-18] MEDS: NACL 0.9% 1,000 ML IV SCH ×2 (07:35→16:10)
--- NOTE | 2021-08-18 07:50 | NUR ---
PT TRANSFER TO RADIOLOGY ON STABLE CONDITION.
[2021-08-18 08:00] VITALS: BP 148/88
--- NOTE | 2021-08-18 08:30 | NUR ---
PT BACK FROM RADIOLOGY ON STABLE CONDITION.
--- NOTE | 2021-08-18 09:06 | NUR ---
PT BACK FROM RADIOLOGY. PT STATING THAT HE IS HUNGRY. INFORMED DR VU IF PT IS ABLE TO GO BACK TO FORMER DIET NOW THAT RADIOLOGY HAS SEEN HIM. PER DR VU, KEEP PT NPO UNTIL DR VIRGEN SEES PT RESULTS TO SEE IF SURGERY IS NEEDED. WILL CONTINUE TO MONITOR.
[2021-08-18] MEDS: LITHIUM CARBONATE 300 MG TAB PO SCH ×2 (09:18→20:19)
[2021-08-18] MEDS: CITALOPRAM 20 MG TAB PO SCH (09:19)
[2021-08-18] MEDS: VANCOMYCIN HCL 1.25 GM in DEXTROSE 5% 250 ML IV SCH (12:19)
--- NOTE | 2021-08-18 12:21 | NUR ---
ANDRADE SOUSA. TOLERATING WELL. PT NOT ON ANY DISTRESS. ALL SAFETY MEASURE IN PLACE. CONTINUE TO BE ON NPO.
[2021-08-18] MEDS: SKINTEGRITY HYDROGEL TP SCH (13:28)
[2021-08-18 13:46] LABS: T4 (THYROXINE) 5.8 ug/dL (4.5 - 12.0)
--- NOTE | 2021-08-18 13:48 | NUR ---
PT ALERT ON STABLE CONDITION WILL GO TO RADIOLOGY FOR PROCEDURE.
--- NOTE | 2021-08-18 14:40 | NUR ---
PT BACK FROM PROCEDURE ON STABLE CONDITION. PUT BACK TO IV . ON STABLE CONDITION. ALL SAFETY MEASURE IN PLACE. CALL LIGHT WITH IN EASY REACH.
--- NOTE | 2021-08-18 16:17 | NUR ---
PT BLOOD PRESSURE AT THIS TIME IS 177/101. CALM NO DISTRESS NO COMPLAIN PAIN, NO DIZZINESS. INFORMED DR. SOSA WAITING FOR RESPONSE.
[2021-08-18 16:28] VITALS: BP 177/101
--- NOTE | 2021-08-18 16:57 | NUR ---
DR. VU RESPONDED AND ORDER METOPROLOL 25 MG BID AND D/C NPO AND PUT BACK TO REGULAR DIET ORDER NOTED AND CARRIED OUT PT. AWARE.
--- NOTE | 2021-08-18 18:50 | NUR ---
PT ON BED DONE EATING DINNER NOT ON ANY DISTRESS. ALL SAFETY MEASURE IN PLACE. CALL LIGHT WITH IN EASY REACH
--- NOTE | 2021-08-18 19:10 | NUR ---
PT ON BED GAVE REPORT TO NOODLE CATALYST MAKER NURSE FOR CONTINUITY OF CARE. ALL SAFETY MEASURE IN PLACE.
--- NOTE | 2021-08-18 19:30 | NUR ---
RECEIVED REPORT FROM RN DAYSHIFT NURSE AT BEDSIDE FOR CONTINUITY OF CARE, PT IN STABLE CONDITION. PT LYING IN BED ASLEEP HE HAS A RIGHT F/A 22G INTACT AND RUNNING NORMAL SALINE AT 120MLS/HR. DRESSING FOR LOWER LEFT ANKLE AND FOOT DRY AND INTACT. ALL FALLS PRECAUTIONS IN PLACE.
--- NOTE | 2021-08-18 20:00 | NUR ---
PT IN BED RESTING WITH EYES CLOSED BUT AROUSABLE TO NAME AND LIGHT TOUCH. NORMAL SALINE CONTINUES AT 120MLS/HR. V/S FOLLOWS: T 98.5 P 91 R 18 B/P 170/91 02 98% ON ROOM AIR. ALL FALLS PRECAUTIONS IN PLACE.
[2021-08-18] MEDS: METOPROLOL 25 MG TAB PO SCH (20:20)
--- NOTE | 2021-08-18 20:30 | NUR ---
PT GIVEN ORDERED LOPRESSOR FOR ELEVATED B/P WELL PO LITHIUM FOR HX OF BIPOLAR. SQ HEPARIN GIVEN FOR DVT PREVENTION. EDUCATION REGARDING MEDICATIONS PROVIDED AT BEDSIDE, PT ACKNOWLEDGED UNDERSTANDING. ALL ORDERED PRECAUTIONS IN PLACE.
--- NOTE | 2021-08-18 23:00 | NUR ---
MD VIRGEN HERE TO LOOK AT PT WOUNDS OF LOWER LEFT LEG AND LEFT FOOT. WOUNDS MEASURED , CLEANED AND DRESSED. (REFER TO WOUND DOCUMENTATION).
[2021-08-19] MEDS: VANCOMYCIN HCL 1.25 GM in DEXTROSE 5% 250 ML IV SCH ×2 (00:13→12:24)
[2021-08-19] MEDS: NACL 0.9% 1,000 ML IV SCH ×3 (00:15→16:55)
--- NOTE | 2021-08-19 02:30 | NUR ---
PT IN BED ASLEEP NO S/SOF PAIN OR DISTRESS NOTED. ALL ORDERED PRECAUTIONS IN PLACE.
--- NOTE | 2021-08-19 06:00 | NUR ---
PT IN BED ASLEEP IV SITE INTACT AND CONTINUES TO RUN NORMAL SALINE AT 120MLS/HR ORDERED. ALL FALLS PRECAUTIONS IN PLACE
[2021-08-19 06:16] LABS: ANION GAP 10.7 (8-16); CARBON DIOXIDE 27.1 mmol/L (21-32); CREATININE 0.9 mg/dL (0.6-1.3); POTASSIUM 3.8 mmol/L (3.5-5.1)
[2021-08-19 06:30] LABS: BASOPHILS % (AUTO) 0.7 % (0.0-2.0); EOSINOPHILS # (AUTO) 0.2 K/uL (0-0.4); EOSINOPHILS % (AUTO) 3.5 % (0.0-4.0); HEMATOCRIT 37.2 % (36-52); HEMOGLOBIN 12.6 g/dL (12.0-18.0); LYMPHOCYTES # (AUTO) 1.2 K/uL (2.0-11.5); LYMPHOCYTES % (AUTO) 25.6 % (20.5-51.1); MEAN CORPUSCULAR HEMOGLOBIN 30 pg (27-31); MEAN CORPUSCULAR HGB CONC 34 g/dL (33-37); MEAN CORPUSCULAR VOLUME 86.9 fL (80-94); MONOCYTES # (AUTO) 0.4 K/uL (0.8-1.0); NEUTROPHILS % (AUTO) 62.2 % (42.2-75.2); PLATELET COUNT (AUTO) 208 K/uL (140-450); RED BLOOD CELL COUNT(AUTO) 4.28 MIL/uL (4.20-6.10); RED CELL DISTRIBUTION WIDTH 14.4 % (11.6-13.7); WHITE BLOOD COUNT (AUTO) 4.8 K/uL (4.8-10.8)
[2021-08-19 06:34] LABS: MAGNESIUM 1.9 mg/dL (1.8-2.4); PHOSPHORUS 3.7 mg/dL (2.5-4.9)
--- NOTE | 2021-08-19 07:30 | NUR ---
RECEIVED REPORT FROM HAND SANDER NURSE. PATIENT LYING DOWN IN BED SLEEPING, AROUSABLE BY VOICE. NO DISTRESS NOTED. DENIES PAIN. LEFT BLE DRESSINGS DRY AND INTACT. IV SITE INTACT, PATENT, AND INFUSING IVF PER MD ORDERS. SAFETY MEASURES IN PLACE, CALL LIGHT WITHIN REACH. WILL CONTINUE TO MONITOR.
[2021-08-19 08:00] VITALS: BP 153/89
[2021-08-19] MEDS: LITHIUM CARBONATE 300 MG TAB PO SCH (08:46)
[2021-08-19] MEDS: METOPROLOL 25 MG TAB PO SCH (08:46)
[2021-08-19] MEDS: CITALOPRAM 20 MG TAB PO SCH (08:47)
--- NOTE | 2021-08-19 08:47 | NUR ---
SCHEDULED MEDICATIONS DUE GIVEN. WILL CONTINUE TO MONITOR.
[2021-08-19] MEDS ORDERED: ROC2I IM/IV (09:14)
[2021-08-19] MEDS ORDERED: METO25TA PO (09:14)
[2021-08-19] MEDS ORDERED: LISI-487 PO (09:14)
[2021-08-19] MEDS ORDERED: DOCU-299 PO (09:14)
[2021-08-19] MEDS ORDERED: VANC250C9 PO (09:14)
[2021-08-19] MEDS ORDERED: lisinopriL 20 MG TAB PO SCH (09:30)
[2021-08-19] MEDS ORDERED: CHLORHEXADINE GLUC 2% CLOTH TP SCH (12:00)
[2021-08-19] MEDS ORDERED: MUPIROCIN CA NASAL 2% 1GM TUBE NS SCH (12:00)
[2021-08-19] MEDS: SKINTEGRITY HYDROGEL TP SCH (13:08)
--- NOTE | 2021-08-19 13:12 | NUR ---
DISCHARGE INSTRUCTIONS PROVIDED TO PATIENT IN PREFERRED LANGUAGE OF CITIZEN OF [place]. INSTRUCTIONS ON NEW/CHANGED MEDICATION REGIMEN AND SIDE EFFECTS, WOUND CARE MANAGEMENT, DIET REGIMEN AND FOLLOW-UP WITH PCP AND PROFESSOR OF PUBLIC ADMINISTRATION PROVIDED. ANSWERED ALL OF PATIENT'S QUESTIONS REGARDING DISCHARGE. CALLED [facility] AND GAVE REPORT TO DANNY FLORES RN. ANSWERED ALL OF HER QUESTIONS AND NOTIFIED RN OF TRANSPORTER PICKUP TIME OF 1300. VERBALIZED UNDERSTANDING. WILL CONTINUE TO MONITOR.
[2021-08-19 16:00] VITALS: BP 144/70
== END 2021-08-19 17:50 | DRG 383 ==
LOC: MED 18:41 → MTU 22:20
DX: L03.116 Cellulitis of left lower limb (principal); L97.529 Non-pressure chronic ulcer of other part of left foot with unspecified severity; E11.51 Type 2 diabetes mellitus with diabetic peripheral angiopathy without gangrene; E11.40 Type 2 diabetes mellitus with diabetic neuropathy, unspecified; E11.621 Type 2 diabetes mellitus with foot ulcer; F31.9 Bipolar disorder, unspecified; I10 Essential (primary) hypertension; Z20.822 Contact with and (suspected) exposure to COVID-19; Z79.899 Other long term (current) drug therapy; Z79.2 Long term (current) use of antibiotics; Z89.511 Acquired absence of right leg below knee
CPT/HCPCS: 36415; 73590; 73630; 78315; 80048; 80053; 80202; 82150; 83036; 83605; 83690; 83735; 83880; 84100; 84134; 84436; 84443; 84484; 85025; 85610; 85730; 87040; 87081; 96365; 96375; 97110; 97163-GP; 97530; 99285; A6248; A9503; J0696; J1644; J2270; J3370; J7060

== ENCOUNTER 2022-06-03 00:50 | Emergency (ER) | payer OTHER ==
[~2022-06-03] VITALS: Ht 188 cm; Wt 108.9 kg
[~2022-06-03 00:50] MED LIST changes: +ALBU0.0912 INH; +ALPR2TAB1 PO; -AMOX-999 PO; +ATOR20TA PO; +BEN50 PO; +DOCU-299 PO; +ESCI10TA PO; +HUM SUBQ; +LISI-487 PO; +METF-350 PO; +METO25TA PO; +ROC2I IM/IV; -SULF-58 PO; +VANC250C9 PO; +ZOLP10TA1 PO
[2022-06-03 01:05] VITALS: BP 150/88
--- NOTE | 2022-06-03 01:08 | NUR ---
PT TO LOBBY
--- NOTE | 2022-06-03 02:11 | NUR ---
PT W/C TO BED #9
--- NOTE | 2022-06-03 02:28 | NUR ---
ERMD AT BEDSIDE ASSESSING PT.
[2022-06-03] MEDS ORDERED: PIPERACILLIN/TAZOBACTAM 3.375 GM in DEXTROSE 5% 50 ML IV ONE (02:40)
[2022-06-03] MEDS ORDERED: KETOROLAC 30 MG/ML VIAL IVP ONE (02:40)
[2022-06-03] MEDS ORDERED: NACL 0.9% 1,000 ML IV ONE (02:40)
[2022-06-03] MEDS ORDERED: VANCOMYCIN 1,000 MG in DEXTROSE 5% 250 ML IV ONE (02:40)
--- NOTE | 2022-06-03 02:45 | NUR ---
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 HX- DM, PT PLACED ON CANDLE WRAPPER.
--- NOTE | 2022-06-03 03:00 | NUR ---
SANDWICH AND JUICE GIVEN TO PT.
[2022-06-03] MEDS ORDERED: VANCOMYCIN 1,000 MG VIAL ONE (03:04)
[2022-06-03] MEDS ORDERED: PIPERACILLIN/TAZOBACTAM 3.375 GM VIAL IV ONE (03:05)
[2022-06-03 03:09] LABS: BASOPHILS # (AUTO) 0.1 K/uL (0.00-0.22); BASOPHILS % (AUTO) 1.4 % (0.0-2.0); EOSINOPHILS # (AUTO) 0.2 K/uL (0-0.4); EOSINOPHILS % (AUTO) 3.6 % (0.0-4.0); HEMOGLOBIN 11.6 g/dL (12.0-18.0); LYMPHOCYTES # (AUTO) 1.5 K/uL (2.0-11.5); LYMPHOCYTES % (AUTO) 22.3 % (20.5-51.1); MEAN CORPUSCULAR HEMOGLOBIN 31 pg (27-31); MEAN CORPUSCULAR HGB CONC 34 g/dL (33-37); MEAN CORPUSCULAR VOLUME 90.9 fL (80-94); MONOCYTES # (AUTO) 0.5 K/uL (0.8-1.0); MONOCYTES % (AUTO) 6.9 % (1.7-9.3); NEUTROPHILS # (AUTO) 4.5 K/uL (1.8-7.7); NEUTROPHILS % (AUTO) 65.8 % (42.2-75.2); PLATELET COUNT (AUTO) 277 K/uL (140-450); RED BLOOD CELL COUNT(AUTO) 3.74 MIL/uL (4.20-6.10); RED CELL DISTRIBUTION WIDTH 13.1 % (11.6-13.7); WHITE BLOOD COUNT (AUTO) 6.8 K/uL (4.8-10.8)
[2022-06-03 03:43] LABS: ALBUMIN 2.9 g/dL (3.4-5.0); CARBON DIOXIDE 25.6 mmol/L (21-32); POTASSIUM 3.6 mmol/L (3.5-5.1); TOTAL BILIRUBIN 0.3 mg/dL (0.0-1.0)
[2022-06-03 03:47] LABS: APPEARANCE,URINE CLEAR (CLEAR); BILIRUBIN,URINE NEGATIVE (NEGATIVE); BLOOD, URINE NEGATIVE (NEGATIVE); COLOR,URINE YELLOW (YELLOW); LEUKOCYTE ESTERASE ,URINE NEGATIVE (NEGATIVE); NITRITE, URINE NEGATIVE (NEGATIVE); UGLUCOSE NEGATIVE (NEGATIVE)
--- NOTE | 2022-06-03 04:00 | NUR ---
PT ASLEEP IN BED, NO COUGH OR DISCOMFORT OBSERVED.
[2022-06-03 04:17] LABS: BARBITURATE, URINE NEGATIVE ng/ml (NEG <=200); BENZODIAZEPINE, URINE NEGATIVE ng/mL (NEG <=200); CANNABINOID, URINE NEGATIVE ng/mL (NEG <=50); COCAINE, URINE NEGATIVE ng/mL (NEG <=300); OPIATE, URINE NEGATIVE ng/mL (NEG <=2000); PHENCYCLIDINE SCREEN,URINE NEGATIVE ng/mL (NEG <=25)
[2022-06-03] MEDS ORDERED: ACET-10509 PO (04:49)
[2022-06-03] MEDS ORDERED: CEPH500T PO (04:49)
[2022-06-03] MEDS ORDERED: BACITRACIN OINT 500 UNITS/GM PKT TP ONE (05:01)
--- NOTE | 2022-06-03 05:07 | NUR ---
NON ADHERENT X 1 AND GAUZE PADS PLACED ON L FOOT WITH SOCK
--- NOTE | 2022-06-03 05:34 | NUR ---
Patient discharged with v/s stable. Written and verbal after care instructions given and explained. Patient verbalized understanding. Wheel Chair to wr. All questions addressed prior to discharge. Advised to follow up with PMD.
[2022-06-03 05:36] VITALS: BP 131/64
== END 2022-06-03 05:27 | disposition home or self-care (01) ==
LOC: MED 00:50
DX: L03.116 Cellulitis of left lower limb (principal); E11.9 Type 2 diabetes mellitus without complications; I10 Essential (primary) hypertension; Z79.899 Other long term (current) drug therapy; Z79.4 Long term (current) use of insulin; Z89.511 Acquired absence of right leg below knee
CPT/HCPCS: 36415; 80053; 80305; 81003; 83605; 85025; 87040; 96365; 96367; 96375; 99284; J1885; J2543; J3370

== ENCOUNTER 2022-06-03 22:22 | Emergency (ER) | payer OTHER ==
[~2022-06-03] VITALS: Ht 185.4 cm; Wt 108.9 kg
[~2022-06-03 22:22] MED LIST changes: +ACET-10509 PO; +CEPH500T PO
[2022-06-03 22:40] VITALS: BP 147/90
--- NOTE | 2022-06-03 22:43 | NUR ---
TO LOBBY A/W BED VIA WHEELCHAIR
--- NOTE | 2022-06-04 02:30 | NUR ---
PT CALLED IN LOBBY AND OUTSIDE WITH NO ANSWER.
--- NOTE | 2022-06-04 02:35 | NUR ---
PT CALLED IN LOBBY AND OUTSIDE WITH NO ANSWER. PATIENT LEFT WITHOUT BEING SEEN BY DR. MENON. NO FURTHER CARE PROVIDED FOR PATIENT.
== END 2022-06-04 02:30 | disposition left against medical advice (07) ==
LOC: MED 22:22
DX: M79.671 Pain in right foot (principal); M79.672 Pain in left foot; Z53.21 Procedure and treatment not carried out due to patient leaving prior to being seen by health care provider

== ENCOUNTER 2022-09-21 11:44 | Emergency (ER) | payer OTHER ==
[~2022-09-21] VITALS: Ht 185.4 cm; Wt 90.7 kg
[2022-09-21 11:48] VITALS: BP 150/86
--- NOTE | 2022-09-21 13:51 | NUR ---
Patient discharged with v/s stable. Written and verbal after care instructions given and explained. Patient verbalized understanding. PT IN PERSONAL WHEELCHAIR. All questions addressed prior to discharge. Advised to follow up with PMD. SECURITY CONTACTED FOR ASSISTANCE. PT CURSING AT STAFF THROWING HIS BELONGINGS IN THE HALLWAY.
--- NOTE | 2022-09-21 13:52 | NUR ---
HOMELESS PACKET AND FOOD PROVIDED TO PT.
== END 2022-09-21 13:51 | disposition home or self-care (01) ==
LOC: MED 11:44
DX: L03.116 Cellulitis of left lower limb (principal); B34.9 Viral infection, unspecified; E11.9 Type 2 diabetes mellitus without complications; I10 Essential (primary) hypertension; J44.9 Chronic obstructive pulmonary disease, unspecified; Z79.4 Long term (current) use of insulin; Z79.899 Other long term (current) drug therapy
CPT/HCPCS: 99283

== ENCOUNTER 2022-10-21 22:43 | Emergency (ER) | payer OTHER ==
[~2022-10-21] VITALS: Ht 185.4 cm; Wt 108.9 kg
[2022-10-21 22:50] VITALS: BP 147/80
--- NOTE | 2022-10-21 22:53 | NUR ---
to lobby via wheelchair, a/w bed
[2022-10-22] MEDS ORDERED: oxyCODONE/APAP 5/325 MG 1 TAB TAB PO ONE (00:45)
[2022-10-22 01:00] VITALS: BP 147/80
--- NOTE | 2022-10-22 01:00 | NUR ---
Patient discharged with v/s stable. Written and verbal after care instructions given and explained. Patient verbalized understanding. Wheel Chair Assisted with steady gait. All questions addressed prior to discharge. Advised to follow up with PMD.
== END 2022-10-22 01:00 | disposition home or self-care (01) ==
LOC: MED 22:43
DX: S81.802A Unspecified open wound, left lower leg, initial encounter (principal); G89.29 Other chronic pain; E11.9 Type 2 diabetes mellitus without complications; I10 Essential (primary) hypertension; Z79.4 Long term (current) use of insulin; Z85.07 Personal history of malignant neoplasm of pancreas; Z59.00 Homelessness unspecified; Z79.899 Other long term (current) drug therapy; X58.XXXA Exposure to other specified factors, initial encounter; Y93.89 Activity, other specified; Y92.89 Other specified places as the place of occurrence of the external cause; Y99.8 Other external cause status
CPT/HCPCS: 99283

== ENCOUNTER 2022-11-17 23:55 | Inpatient (IN) | payer OTHER ==
[~2022-11-17] VITALS: Ht 188 cm; Wt 111.1 kg
[2022-11-18] VITALS: BP 170/90
--- NOTE | 2022-11-18 | NUR ---
TO LOBBY WITH HIS OWN WHEELCHAIR, GLORIA WITH C/O GEN WEAKNESS FOR 3 YEARS
--- NOTE | 2022-11-18 04:45 | NUR ---
SEEN AND EXAMINED BY ISAMAR
--- NOTE | 2022-11-18 05:09 | NUR ---
Patient went to restroom, Patient declined to provide urine sample.
--- NOTE | 2022-11-18 05:22 | NUR ---
X-Ray at bedside.
--- NOTE | 2022-11-18 05:23 | NUR ---
Cher vasquez in [facility] - 11/18/22 at 0523 by JEAN MARIE X-Ray at bedside.
--- NOTE | 2022-11-18 05:35 | NUR ---
Dr. Barker examining patient.
[2022-11-18 06:08] LABS: BASOPHILS # (AUTO) 0.1 K/uL (0.00-0.22); EOSINOPHILS # (AUTO) 0.3 K/uL (0-0.4); EOSINOPHILS % (AUTO) 4.8 % (0.0-4.0); HEMATOCRIT 29.7 % (36-52); LYMPHOCYTES # (AUTO) 1.1 K/uL (2.0-11.5); LYMPHOCYTES % (AUTO) 18.9 % (20.5-51.1); MEAN CORPUSCULAR HEMOGLOBIN 27 pg (27-31); MEAN CORPUSCULAR HGB CONC 34 g/dL (33-37); MEAN CORPUSCULAR VOLUME 81.2 fL (80-94); MONOCYTES # (AUTO) 0.6 K/uL (0.8-1.0); MONOCYTES % (AUTO) 9.5 % (1.7-9.3); NEUTROPHILS # (AUTO) 3.9 K/uL (1.8-7.7); NEUTROPHILS % (AUTO) 65.8 % (42.2-75.2); PLATELET COUNT (AUTO) 256 K/uL (140-450); RED BLOOD CELL COUNT(AUTO) 3.66 MIL/uL (4.20-6.10); RED CELL DISTRIBUTION WIDTH 13.6 % (11.6-13.7); WHITE BLOOD COUNT (AUTO) 5.9 K/uL (4.8-10.8)
--- NOTE | 2022-11-18 06:16 | NUR ---
COVID-19 swab collected and sent to lab.
[2022-11-18 06:17] LABS: ANION GAP 10.8 (8-16); CARBON DIOXIDE 27.5 mmol/L (21-32); POTASSIUM 3.3 mmol/L (3.5-5.1)
[2022-11-18] MEDS ORDERED: VANCOMYCIN 1,000 MG in DEXTROSE 5% 250 ML IV ONE (06:40)
[2022-11-18] MEDS ORDERED: PIPERACILLIN/TAZOBACTAM 3.375 GM in DEXTROSE 5% 50 ML IV ONE (06:40)
[2022-11-18] MEDS ORDERED: PIPERACILLIN/TAZOBACTAM 3.375 GM VIAL IV ONE (06:45)
--- NOTE | 2022-11-18 07:18 | NUR ---
Urine sample collected and sent to lab.
--- NOTE | 2022-11-18 07:30 | NUR ---
Report given to ANDRADE Olguin and endorse care of patient.
[2022-11-18 08:34] LABS: BARBITURATE, URINE NEGATIVE ng/ml (NEG <=200)
[2022-11-18 08:35] LABS: BENZODIAZEPINE, URINE NEGATIVE ng/mL (NEG <=200); CANNABINOID, URINE NEGATIVE ng/mL (NEG <=50); COCAINE, URINE NEGATIVE ng/mL (NEG <=300); OPIATE, URINE NEGATIVE ng/mL (NEG <=2000); PHENCYCLIDINE SCREEN,URINE NEGATIVE ng/mL (NEG <=25)
[2022-11-18] MEDS ORDERED: VANCOMYCIN 1,000 MG VIAL ONE (09:31)
[2022-11-18] MEDS ORDERED: ONDANSETRON 4 MG/2 ML VIAL IVP PRN (09:45)
[2022-11-18] MEDS ORDERED: MORPHINE SULFATE 2 MG/ML SYR IVP PRN (09:45)
[2022-11-18] MEDS ORDERED: ACETAMINOPHEN 325 MG TAB PO PRN (09:45)
--- NOTE | 2022-11-18 11:25 | NUR ---
ADMITTED FROM ER VIA [facility]. A & O X4. NO C/O PAIN. NO SOB, NOTED. H/L RIGHT HAND GAUGE #22 INTACT. RIGHT BKA. WOUND COVERED WITH DRY DRESSING ON LLE. DRY WOUND UNDERNEATH ON LEFT FOOT (WOUND PHOTOS TAKEN IN ER). EXPLAINED DIAGNOSIS, NPO, PLAN OF CARE, PAIN MANAGEMENT TEACHING, USE OF CALL LIGHT/BED/TV/BATHROOM. VERBALIZED UNDERSTANDING. FALL PRECAUTION APPLIED. CALL LIGHT WITHIN REACH.
[2022-11-18 11:30] VITALS: BP 158/91
--- NOTE | 2022-11-18 11:46 | NUR ---
Patient will be admitted to care of DR FONTENOT. Admited to MED SURGMed/Surg. Will go to room 112A. Belongings list completed. Report to ENEDINA.DRESSINGS APPLIED TO LEFT FFOT AND L COOPER POST PICTURES BUT PT TOOK THEM OFF. PT AWARE OF NPO STATUS BUT THREATENED TO JUMP OUT OF BED TO GET WATER. 1 CUP OF WATER GIVEN
--- NOTE | 2022-11-18 11:48 | NUR ---
PAGED DR. QUEEN REGARDING PT. K 3.3. INFORMED CHARGE NURSE YAMILEX -ANDRADE.
[2022-11-18] MEDS: NACL 0.9% 1,000 ML IV SCH ×3 (11:55→21:26)
--- NOTE | 2022-11-18 12:50 | NUR ---
ASSISTED PT. TO BATHROOM VIA WHEELCHAIR. NON-COMPLIANT TO SAFETY AT TIMES.
[2022-11-18] MEDS ORDERED: PIPERACILLIN/TAZOBACTAM 3.375 GM in DEXTROSE 5% 50 ML IV SCH (13:00)
--- NOTE | 2022-11-18 14:05 | NUR ---
DR. QUEEN CAME AND SPOKE TO PT. AT BEDSIDE. INFORMED OF PT. VS'S, DIET, AND K 3.3.
[2022-11-18] MEDS: PIPERACILLIN/TAZOBACTAM 3.375 GM in DEXTROSE 5% 50 ML IV SCH ×2 (14:07→20:49)
[2022-11-18] MEDS ORDERED: POTASSIUM CHLORIDE 10 MEQ TABER PO PRN (14:40)
[2022-11-18] MEDS ORDERED: hydrALAZINE 20 MG/ML VIAL IVP PRN (14:45)
[2022-11-18 16:00] VITALS: BP 154/78
[2022-11-18] MEDS: HYDROcodone/APAP 5/325 MG 1 TAB TAB PO PRN (16:04)
[2022-11-18] MEDS: BLOOD GLUCOSE MONITORING 1 DEV DEV FS SCH ×2 (16:44→20:47)
[2022-11-18] MEDS: INSULIN LISPRO SLIDING SCALE 100 UNITS/ML VIAL SUBQ PRN ×2 (16:45→20:48)
--- NOTE | 2022-11-18 19:09 | NUR ---
PT. EATING DINNER AT THIS TIME. IN STABLE CONDITION. IVF INFUSING WELL. WILL ENDORSE TO LINE OUT MAN NURSE FOR CONTINUITY OF CARE.
--- NOTE | 2022-11-18 19:55 | NUR ---
PATIENT AWAKE ALERT ORIENTED X4. NO DISTRESS NOTED ON ROOM AIR. ALL NEEDS ATTENDED AND MET. SAFETY MEASURES IN PLACE. IVF NS 125 ML/HR INFUSING IN THE RIGHT FOREARM. SAFETY MEASURES IN PLACE. CALL LIGHT IN REACH.
--- NOTE | 2022-11-18 20:49 | NUR ---
ADMINISTERED SCHEDULED DUE MEDICATION.
[2022-11-19] VITALS: BP 156/91
[2022-11-19] MEDS: NACL 0.9% 1,000 ML IV SCH ×3 (01:45→17:46)
[2022-11-19] MEDS: HYDROcodone/APAP 5/325 MG 1 TAB TAB PO PRN ×3 (03:25→15:50)
[2022-11-19] MEDS: PIPERACILLIN/TAZOBACTAM 3.375 GM in DEXTROSE 5% 50 ML IV SCH ×3 (05:22→21:20)
[2022-11-19] MEDS: BLOOD GLUCOSE MONITORING 1 DEV DEV FS SCH ×5 (06:42→21:10)
--- NOTE | 2022-11-19 06:42 | NUR ---
CHECK BLOOD SUGAR WAS 168. ADMINISTERED HUMALOG INSULIN ORDERED PER SLIDING SCALE.
[2022-11-19] MEDS: INSULIN LISPRO SLIDING SCALE 100 UNITS/ML VIAL SUBQ PRN ×5 (06:43→21:23)
--- NOTE | 2022-11-19 06:55 | NUR ---
ALL NEEDS MET THROUGHOUT THE SHIFT. WILL ENDORSE TO THE NEXT SHIFT. PATIENT IS IN STABLE CONDITION.
[2022-11-19 07:24] LABS: ALBUMIN 2.9 g/dL (3.4-5.0); ANION GAP 9.6 (8-16); CARBON DIOXIDE 29.2 mmol/L (21-32); MAGNESIUM 1.3 mg/dL (1.8-2.4); POTASSIUM 3.8 mmol/L (3.5-5.1); TOTAL BILIRUBIN 0.4 mg/dL (0.0-1.0)
[2022-11-19 07:35] LABS: BASOPHILS % (AUTO) 0.8 % (0.0-2.0); EOSINOPHILS # (AUTO) 0.3 K/uL (0-0.4); EOSINOPHILS % (AUTO) 5.1 % (0.0-4.0); HEMOGLOBIN 9.9 g/dL (12.0-18.0); LYMPHOCYTES # (AUTO) 1.1 K/uL (2.0-11.5); LYMPHOCYTES % (AUTO) 20.3 % (20.5-51.1); MEAN CORPUSCULAR HEMOGLOBIN 27 pg (27-31); MEAN CORPUSCULAR HGB CONC 34 g/dL (33-37); MEAN CORPUSCULAR VOLUME 79.2 fL (80-94); MONOCYTES # (AUTO) 0.4 K/uL (0.8-1.0); MONOCYTES % (AUTO) 7.3 % (1.7-9.3); NEUTROPHILS # (AUTO) 3.6 K/uL (1.8-7.7); NEUTROPHILS % (AUTO) 66.5 % (42.2-75.2); PLATELET COUNT (AUTO) 248 K/uL (140-450); RED BLOOD CELL COUNT(AUTO) 3.66 MIL/uL (4.20-6.10); RED CELL DISTRIBUTION WIDTH 13.9 % (11.6-13.7); WHITE BLOOD COUNT (AUTO) 5.4 K/uL (4.8-10.8)
[2022-11-19 08:00] VITALS: BP 145/92
--- NOTE | 2022-11-19 09:13 | NUR ---
PATIENT HAS BEEN SCREENED AND CATEGORIZED HIGH NUTRITION RISK. PATIENT WILL BE SEEN WITHIN 1-2 DAYS OF ADMISSION. FNS REFERRAL FOR "UNHEALED WOUND" AND FNS CONSULT FOR "WOUNDS/PRESSURE ULCERS" RECEIVED ON 11/19/22 REVIEW[address] BY ROSE HAWKINS RD
[2022-11-19] MEDS: NICOTINE TRANSD SYS 14 MG/24 HR PATCH TD SCH (09:31)
[2022-11-19 16:00] VITALS: BP 158/85
--- NOTE | 2022-11-19 16:40 | NUR ---
11/19/22 RD INITIAL ASSESSMENT COMPLETED PLEASE REFER TO NUTRITION ASSESSMENT UNDER CARE ACTIVITY FOR ESTIMATED NUTRITIONAL NEEDS. 1. CONTINUE CCHO 60 GM DIET TOLERATED 2. RECOMMEND KEMI BID FOR WOUND SUPPORT -PROVIDES 160 KCAL AND 5 GM PROTEIN DAILY 3. PROVIDED NUTRITION EDUCATION AND HANDOUTS FOR DM 4. RD TO FOLLOW-UP 3-5 DAYS, MODERATE RISK REVIEWED BY ROSE HAWKINS RD
[2022-11-19] MEDS ORDERED: MAG SULF 2000 MG/WATER PREMIX 50 ML IV PRN (22:15)
[2022-11-20] MEDS: NACL 0.9% 1,000 ML IV SCH ×3 (01:19→18:31)
[2022-11-20] MEDS: HYDROcodone/APAP 5/325 MG 1 TAB TAB PO PRN ×3 (02:44→16:39)
[2022-11-20] MEDS: PIPERACILLIN/TAZOBACTAM 3.375 GM in DEXTROSE 5% 50 ML IV SCH ×3 (05:00→21:01)
[2022-11-20] MEDS ORDERED: PIPERACILLIN/TAZOBACTAM 3.375 GM VIAL IV ONE (07:07)
[2022-11-20] MEDS: BLOOD GLUCOSE MONITORING 1 DEV DEV FS SCH ×4 (07:30→20:38)
[2022-11-20 08:00] VITALS: BP 153/95
[2022-11-20] MEDS: LORazepam 2 MG/ML VIAL IVP PRN (09:19)
[2022-11-20] MEDS: NICOTINE TRANSD SYS 14 MG/24 HR PATCH TD SCH (09:25)
--- NOTE | 2022-11-20 13:00 | NUR ---
WOUND CARE EVALUATION NOTES: REASON FOR EVALUATION: LLE AND LEFT FOOT DM ULCERS WOUND ASSESSMENT COMPLETED ON THIS 56 Y/O MALE ADMITTED TO [facility] UNIT FOR DM FOOT ULCERS. PATIENT IS HOMELESS. PAST MEDICAL HISTORY INCLUDES LEFT FOOT TMA, DM II, ILLICIT DRUG ABUSE, RIGHT AKA. ALL ABOVE INFORMATION WAS OBTAINED FROM THE ADMISSION H&P. PATIENT IS AAOX3. SKIN IS WARM TO TOUCH. ABLE TO TRANSFER SELF WITH STANDBY ASSISTANCE. ORAL MUCOSAL MEMBRANES MOIST. PLAN OF CARE AND PRESSURE PREVENTATIVE MEASURES DISCUSSED WITH PATIENT AND PRIMARY RN. PATIENT ADMITTED WITH LLE AND PLANTAR HEEL DM ULCERS. COMORBIDITIES RELATED TO FURTHER SKIN BREAKDOWN SUCH DECREASED MOBILITY. INTEGUMENTARY: - PICTURES REVIEWED IN CHART. - LLE DM ULCERS AND LEFT PLANTAR HEEL ULCERS S/P DEBRIDEMENT BY SURGEON DR. AHUMADA 11/19/22. LESS THAN 24 HOURS, DRESSINGS DRY AND INTACT. SURGEON TO FOLLOW-UP. - MIXER AND BLENDER CONSULT IN PLACE WELL. RECOMMENDATIONS: - CONTINUE TO MONITOR DRESSINGS, REINFORCE NEEDED. FOLLOW-UP WITH SURGEON/MIXER AND BLENDER WOUND CARE ORDERS AFTER 24 HOURS OF DEBRIDEMENT. - ASSIST WITH TURNING AND REPOSITIONING Q2H NEEDED. - ASSESS AND MONITOR SKIN CONDITION DURING POSITION CHANGE. PLEASE PAY ATTENTION TO SACRALCOCCYX AND HEELS. - KEEP SKIN DRY AND CLEAN AT ALL TIMES. - RD CONSULT RECOMMENDATIONS DISCUSSED WITH PRIMARY RN. WILL FOLLOW-UP PATIENT Q7-10 DAYS AND PRN. PLEASE CONTACT WOUND CARE NURSE FOR ANY CONCERNS AND CHANGES IN WOUND CONDITION.
[2022-11-20 16:00] VITALS: BP 135/76
[2022-11-20] MEDS: INSULIN LISPRO SLIDING SCALE 100 UNITS/ML VIAL SUBQ PRN (18:43)
[2022-11-20 20:30] VITALS: BP 171/99
--- NOTE | 2022-11-20 20:39 | NUR ---
NURSE NOTES HS BG 94. NO SLIDING SCALE INSULIN NEEDED. BP 171/99. WILL GIVE APRESOLINE 10 MG IVP.
[2022-11-20 21:59] VITALS: BP 140/90
--- NOTE | 2022-11-20 22:00 | NUR ---
NURSE NOTES HS BG 94. NO SLIDING SCALE INSULIN NEEDED.
--- NOTE | 2022-11-20 23:00 | NUR ---
NURSE NOTES ASKED FOR DECAF COFFEE. NO C/O PAIN OR DISCOMFORT.
--- NOTE | 2022-11-21 | NUR ---
NURSE NOTES ASLEEP WITHOUT ANY DISTRESS.
[2022-11-21] MEDS: NACL 0.9% 1,000 ML IV SCH ×2 (01:45→09:12)
--- NOTE | 2022-11-21 04:00 | NUR ---
NURSE NOTES ASLEEP. NO C/O PAIN OR DISCOMFORT.
[2022-11-21] MEDS: PIPERACILLIN/TAZOBACTAM 3.375 GM in DEXTROSE 5% 50 ML IV SCH (05:17)
[2022-11-21] MEDS: HYDROcodone/APAP 5/325 MG 1 TAB TAB PO PRN (06:14)
[2022-11-21] MEDS: INSULIN LISPRO SLIDING SCALE 100 UNITS/ML VIAL SUBQ PRN (06:14)
--- NOTE | 2022-11-21 06:14 | NUR ---
NURSE NOTES MEDICATED FOR PAIN WITH NORCO 5/325 1 TAB
[2022-11-21] MEDS: BLOOD GLUCOSE MONITORING 1 DEV DEV FS SCH ×2 (06:30→07:46)
--- NOTE | 2022-11-21 07:00 | NUR ---
NURSE NOTES ATIVAN 1 MG GIVEN IVP FOR ANXIETY. PATIENT CALLING THIS NURSE ON THE CELLPHONE AND UNIT PHONE AND CALL LIGHT. EXPLAINED TO PATIENT THAT THIS NURSE IS TRYING TO GET THE ATIVAN FOR HIM.
[2022-11-21] MEDS: LORazepam 2 MG/ML VIAL IVP PRN (07:03)
--- NOTE | 2022-11-21 07:30 | NUR ---
NURSE REPORT REPORT GIVEN TO DAYSAZFT NURSE MACEY TO ASSUME CARE OF PATIENT. ALL QUESTIONS ANSWERED. KASSIE REZA RN
[2022-11-21] MEDS: NICOTINE TRANSD SYS 14 MG/24 HR PATCH TD SCH (09:00)
--- NOTE | 2022-11-21 09:15 | NUR ---
PT WAS CAUGHT BY STAFF BREAKING INTO [facility] C[facility]. PHARMACY WAS CALLED TO INSPECT CART AND SEE IF ANY MEDICATION IS MISSING.
--- NOTE | 2022-11-21 10:10 | NUR ---
AT ROUGHLY 0715, PT WAS FOUND IN NUTRITION ROOM TAKING FOOD OUT OF THE FRIDGE AND DOOR CLOSED. PT INSTRUCTED ON IMPORTANCE OF NOT TAKING FOOD OR WANDERING AROUND THE HOSPITAL. PT BECAME VERBALLY UPSET. AT ROUGHLY 0755 PT WAS FOUND AGAIN BY STAFF WANDERING THE HALLS INTO PATIENTS ROOMS. SECURITY WAS CALLED. PT BECAME AGITATED AND STARTED YELLING SAYING HE WANTED TO GO AMA, BECOMING PHYSICAL WITH CLOD PULLER AND ENEDINA HUGO. PT ATTEMPTING TO SLAM DOOR IN SECURITY GUARDS FACE. CASSIA BUCKNER WAS CALLED. DR QUEEN WAS NOTIFIED, ORDER FOR TELEPSYCH AND PT CHANGED HIS MIND ABOUT AMA. PT EDUCATED ON STAYING IN ROOM AND HOSPITAL ENVIRONMENT. AT ROUGHLY 0915, PT WAS CAUGHT ON [facility] SIDE OF UNIT BREAKING INTO CRASH CART. PT ESCORTED BACK TO HIS ROOM, PHARMACY CALLED REGARDING ASSESSMENT OF CRASH CART TO ENSURE NO MISSING MEDICATION. MORTGAGE UNDERWRITER CAME TO BEDSIDE, DISCUSSED POC WITH PT. PT STATES HE WANTS TO LEAVE, MADE AWARE. PT SIGNED AMA FORM. SECURITY BROUGHT PAIR OF PANTS AND SHOES. ADDRESS WAS PROVIDED BY PT AND UBER WAS ORDERED. IV WAS REMOVED BY PRIMARY RN
--- NOTE | 2022-11-21 10:12 | NUR ---
REMOVED IV AND NAME BAND, PT SIGNED AMA. PT GATHERED BELONGINGS AND LEFT WITH HIS WHEELCHAIR. MACHINE STRIPER AND SECURITY WALKED PT OUT TO FRONT LOBBY.
== END 2022-11-21 10:10 | disposition left against medical advice (07) | DRG 710 ==
LOC: MED 23:55 → MMU 11-18 09:48 → MTU 11-18 10:23
PROVIDERS: ADMIT Hospitalist; ATTEND Hospitalist
PROC: 0JDP0ZZ Extraction of Left Lower Leg Subcutaneous Tissue and Fascia, Open Approach (ICD-10-PCS; principal; 2022-11-19)
PROC: 0JDR0ZZ Extraction of Left Foot Subcutaneous Tissue and Fascia, Open Approach (ICD-10-PCS; 2022-11-19)
DX: A41.9 Sepsis, unspecified organism (principal); E44.1 Mild protein-calorie malnutrition; E11.621 Type 2 diabetes mellitus with foot ulcer; D63.8 Anemia in other chronic diseases classified elsewhere; L97.429 Non-pressure chronic ulcer of left heel and midfoot with unspecified severity; E11.65 Type 2 diabetes mellitus with hyperglycemia; E87.6 Hypokalemia; Z53.29 Procedure and treatment not carried out because of patient's decision for other reasons; F15.10 Other stimulant abuse, uncomplicated; Z20.822 Contact with and (suspected) exposure to COVID-19; I10 Essential (primary) hypertension; Z83.3 Family history of diabetes mellitus; Z85.07 Personal history of malignant neoplasm of pancreas; Z79.4 Long term (current) use of insulin; Z79.899 Other long term (current) drug therapy; Z79.2 Long term (current) use of antibiotics; Z68.31 Body mass index [BMI] 31.0-31.9, adult
CPT/HCPCS: 36415; 73630; 80048; 80053; 80305; 82948; 83605; 83735; 85025; 87040; 87070; 87081; 96365; 96367; 99285; J0360; J1815; J2060; J2543; J3370; J3475; J7060; Q0092

== ENCOUNTER 2022-11-24 20:15 | Emergency (ER) | payer OTHER ==
[~2022-11-24] VITALS: Ht 182.9 cm; Wt 109.3 kg
[2022-11-24 20:17] VITALS: BP 152/90
== END 2022-11-24 22:30 | disposition left against medical advice (07) ==
LOC: MED 20:15
DX: M79.662 Pain in left lower leg (principal); Z53.21 Procedure and treatment not carried out due to patient leaving prior to being seen by health care provider
CPT/HCPCS: 99281

== ENCOUNTER 2022-11-25 02:53 | Inpatient (IN) | payer OTHER ==
[~2022-11-25] VITALS: Ht 188 cm; Wt 109.8 kg
--- NOTE | 2022-11-25 | NUR ---
ROUNDS , V/S RE CHECK RR 18 , O2 SAT 96 % , BP 133/70 , HR 85 , T 98.9 F , CALL LIGHT / URINAL WITHIN REACH . REMINDS HIM ABOUT IV NEEDLE RE INHSERTION - HE SAID LATTER .
[2022-11-25 03:05] VITALS: BP 148/62
[2022-11-25] MEDS ORDERED: VANCOMYCIN 1GM/DEXT 5% PREMIX 200 ML IV ONE (03:05)
[2022-11-25] MEDS ORDERED: PIPERACILLIN/TAZOBACTAM 3.375 GM in DEXTROSE 5% 50 ML IV ONE (03:05)
[2022-11-25] MEDS ORDERED: VANCOMYCIN PER PHARMACY MC ONE (03:05)
[2022-11-25] MEDS ORDERED: HYDROcodone/APAP 5/325 MG 1 TAB TAB PO ONE (03:05)
--- NOTE | 2022-11-25 03:05 | NUR ---
to lobby a/w bed ambulatory
--- NOTE | 2022-11-25 03:08 | NUR ---
Patient resting in bed, A/Ox4, chest rise and fall symmetrical, no c/o pain or s/s of distress.
[2022-11-25 03:30] LABS: BASOPHILS # (AUTO) 0.1 K/uL (0.00-0.22); BASOPHILS % (AUTO) 1.1 % (0.0-2.0); EOSINOPHILS # (AUTO) 0.2 K/uL (0-0.4); EOSINOPHILS % (AUTO) 3.8 % (0.0-4.0); HEMATOCRIT 31.7 % (36-52); HEMOGLOBIN 10.4 g/dL (12.0-18.0); LYMPHOCYTES # (AUTO) 1.3 K/uL (2.0-11.5); LYMPHOCYTES % (AUTO) 19.8 % (20.5-51.1); MEAN CORPUSCULAR HEMOGLOBIN 26 pg (27-31); MEAN CORPUSCULAR HGB CONC 33 g/dL (33-37); MEAN CORPUSCULAR VOLUME 79.6 fL (80-94); MONOCYTES # (AUTO) 0.6 K/uL (0.8-1.0); MONOCYTES % (AUTO) 9.3 % (1.7-9.3); NEUTROPHILS # (AUTO) 4.4 K/uL (1.8-7.7); PLATELET COUNT (AUTO) 301 K/uL (140-450); RED BLOOD CELL COUNT(AUTO) 3.98 MIL/uL (4.20-6.10); WHITE BLOOD COUNT (AUTO) 6.6 K/uL (4.8-10.8)
[2022-11-25 03:57] LABS: ALBUMIN 3.8 g/dL (3.4-5.0); ANION GAP 11.2 (8-16); CARBON DIOXIDE 27.4 mmol/L (21-32); POTASSIUM 3.6 mmol/L (3.5-5.1); TOTAL BILIRUBIN 0.4 mg/dL (0.0-1.0)
--- NOTE | 2022-11-25 04:00 | NUR ---
Patient taken to X-ray via WC.
--- NOTE | 2022-11-25 05:35 | NUR ---
PER ANDRADE MOORE HE DISCONNECTED THE PT'S IV TUBINGS , WHEN HE CHANGE THE BED LINEN OF THE PT - WILL RE CONNECT . Addendum: 11/26/22 at 0718 by Lakia Martinez RN THE ABOVE NURSE'S NOTES IS DATE ERROR ENTRY , INSTEAD OF 11/26/22 - PHILLIP Wynn
--- NOTE | 2022-11-25 05:39 | NUR ---
Patient finished taking shower that patient requested to take. Patient's clothing stored in bags with patient's wheelchair at bedside. Patient in new gown. Patient A/Ox4, chest rise and fall symmetrical, resting in bed, no s/s of distress.
--- NOTE | 2022-11-25 05:40 | NUR ---
Patient resting in bed, A/Ox4, chest rise and fall symmetrical, no c/o pain or s/s of distress.
[2022-11-25] MEDS ORDERED: VANCOMYCIN 1,000 MG VIAL ONE (05:46)
[2022-11-25] MEDS ORDERED: HYDROcodone/APAP 5/325 MG 1 TAB TAB ONE (05:47)
[2022-11-25] MEDS ORDERED: PIPERACILLIN/TAZOBACTAM 3.375 GM VIAL IV ONE (05:48)
[2022-11-25] MEDS ORDERED: SUCCINYLCHOLINE CHLORIDE 200 MG/10 ML VIAL IVP ONE (06:05)
[2022-11-25] MEDS ORDERED: ETOMIDATE 20 MG/10 ML VIAL IVP ONE (06:05)
--- NOTE | 2022-11-25 06:32 | NUR ---
ETOMIDATE 20MG AND SUCCS 100MG WERE PULLED UNDER THIS PATIENT FOR PATIENT WHO WAS NOT REGISTERED AND WAS IN AN EMERGENT STATE ( ANNABELLE COTTON}
--- NOTE | 2022-11-25 07:35 | NUR ---
Change of shift report given to AM shift nurse Sharif RN. AM shift nurse Sharif RN verbalized understanding of report, no further questions.
[2022-11-25] MEDS ORDERED: POTASSIUM CHLORIDE 10 MEQ TABER PO PRN (09:15)
[2022-11-25] MEDS ORDERED: VANCOMYCIN PER PHARMACY MC PRN (09:15)
[2022-11-25] MEDS ORDERED: ACETAMINOPHEN 325 MG TAB PO PRN (09:15)
[2022-11-25] MEDS ORDERED: ALBUTEROL SULFATE/IPRATROPIU 3 ML SOL IH PRN (09:15)
[2022-11-25] MEDS ORDERED: MAGNESIUM OXIDE 400 MG TAB PO PRN (09:15)
[2022-11-25] MEDS ORDERED: ONDANSETRON 4 MG/2 ML VIAL IVP PRN (09:15)
[2022-11-25] MEDS ORDERED: MORPHINE SULFATE 4 MG/ML SYR IVP PRN (09:15)
[2022-11-25] MEDS ORDERED: MAG SULF 2000 MG/WATER PREMIX 50 ML IV PRN (09:15)
[2022-11-25] MEDS ORDERED: KCL 20 MEQ IN 100 mL PREMIX 200 ML IV PRN (09:15)
[2022-11-25] MEDS ORDERED: DOCUSATE SODIUM 100 MG GELCAP PO PRN (09:30)
[2022-11-25] MEDS ORDERED: ALPRAZolam 0.5 MG TAB PO PRN (09:30)
[2022-11-25] MEDS ORDERED: GABAPENTIN 300 MG CAP PO PRN (09:30)
[2022-11-25] MEDS ORDERED: DEXTROSE 50% 50 ML SYR IVP PRN (09:40)
[2022-11-25] MEDS ORDERED: NACL 0.9% 1,000 ML IV ONE (09:40)
[2022-11-25 11:20] LABS: BILIRUBIN,URINE NEGATIVE (NEGATIVE); BLOOD, URINE 2+ (NEGATIVE); COLOR,URINE YELLOW (YELLOW); LEUKOCYTE ESTERASE ,URINE TRACE (NEGATIVE); NITRITE, URINE NEGATIVE (NEGATIVE); UGLUCOSE TRACE (NEGATIVE)
[2022-11-25 11:23] LABS: APPEARANCE,URINE CLOUDY (CLEAR)
[2022-11-25 11:32] LABS: RBC,URINE 0-5 /HPF (0-5); WBC,URINE 0-5 /HPF (0-5)
--- NOTE | 2022-11-25 14:00 | NUR ---
RECEIVED PATIENT FROM ED VIA GURNEY ACCOMPANIED BY NURSE. PATIENT IS AWAKE AND ALERT AND CONFUSED. PATIENT NOTED TO HAVE HALLUCINATION AT TIMES. PT IS CURRENTLY UNCOOPERATIVE, POOR HISTORIAN. WHEN APPROACH TO PROVIDE CARE, PATIENT YELLED, " THEY ARE RAPING ME" NURSE YANETH WILKINSON LEFT ROOM IMMEDIATELY.
[2022-11-25] MEDS: VANCOMYCIN 1,500 MG in DEXTROSE 5% 500 ML IV SCH (15:00)
--- NOTE | 2022-11-25 15:19 | NUR ---
ADDENDUM 1330 PT IN BED, USING URINAL VOIDING URINE TOTAL 1000 ML. WIPING STOOL OFF HIS RECTAL AREA "OOOPS, I WENT" WHEN ASKED IF INCONTINENT, SAID NO. ABLE TO TRANSFER IN AND OUT OF WHEELCHAIR BUT "I JUST GO IN THE BED AND I WIPE MYSELF". REMOVED HOSPITAL GOWN AND WORE DAMP SWEATER AGAIN " I REFUSED TO WEAR A GOWN, MAKES ME FEEL LIKE A PATIENT" PT ABLE TO SCOOT SELF TO HOSPITAL BED WHEN BROUGHT TO ROOM 120. REFUSES TO WEAR A MASK.
[2022-11-25 16:00] VITALS: BP 153/79
[2022-11-25] MEDS: BLOOD GLUCOSE MONITORING 1 DEV DEV FS SCH ×3 (17:16→23:01)
[2022-11-25 20:00] VITALS: BP 146/78
[2022-11-25] MEDS: METOPROLOL 25 MG TAB PO SCH ×2 (21:00→23:01)
[2022-11-25] MEDS: ATORVASTATIN 20 MG TAB PO SCH ×2 (21:00→23:01)
--- NOTE | 2022-11-25 21:38 | NUR ---
POLICE ARRIVED PER REQUEST OF PORTFOLIO ANALYST AND SECURITY. PATIENT HAS THREATEN TO COMMIT SUICIDE AND HARM TO OTHERS IF TOUCHED. PATIENT IS NOT COMPLIANT TO STAFF FOR VITAL SIGNS, ACCUCHECK, AND FOLLOW CURRENT DIET. POLICE SPOKE WITH PATIENT TO COMPLY AND NO MORE PROBLEMS. [email or web address]
--- NOTE | 2022-11-25 22:05 | NUR ---
PATIENT IS NOW PUSHING ON THE CODE BLUE CODE LIGHT, CHANGING BEDS, AND URINATED ON THE FLOOR/SELF. PATIENT STATED HE NO LONGER WANT NURSE TO PROVIDE HIM CARE. NURSING WILL NOTIFY MD AND PROFESSOR OF PUBLIC ADMINISTRATION. SECURITY WAS CALLED BECAUSE PATIENT WAS ATTEMPTING TO DAMAGE THE CALL LIGHTS IN THE ROOM. [email or web address]
--- NOTE | 2022-11-25 23:29 | NUR ---
ROUNDS , ASKING PT IF HE IS OK , HE SAYS HE MAD , BECAUSE HE WANTS SOMETHING TO EAT , HE SAID HE PEED IN TO HIS PITCHER BECAUSE HE HAS NO URINAL . NO S/SX OF ACUTE DISTRESS NOTED , WILL PROVIDE SOMETHING TO EAT , FRESH ICED WATER , AND NEW URINAL .
--- NOTE | 2022-11-25 23:33 | NUR ---
PROVIDES SNACK , FRESH ICED WATER , AND NEW URINAL - REMINDS PT IF HE PEE ON URINAL LET ME KNOW BECAUSE I HAVE TO COLLECT URINE SPECIMEN ORDERED BY THE DOCTOR , PT. VERBALIZES UNDERSTANDING . PT HAS NO IV SITE AT THIS TIME , WHEN I ASKING HIM WHAT HAPPEN TO YOUR NEEDLE ? HE SAID I PULLED OUT . I 'M ASKING HIM IF HE ALLOW ME TO INSERT NEW ONE , HE SAID OK BUT NOT THIS TIME , I SAYS TO HIM OK I WILL LET YOU TO EAT AND REST AND RELAX AT THIS TIME , BUT WHAT YOU HAVE SAID TO ME YOU ALLOW ME TO INSERT IV NEEDLE LATTER , I REMINDS HIM HE HAS SCHED . ANTIBIOTIC AT 3AM THRU THE IV SO THAT WE NEED TO RE INSERT NEW ONE . HE SAID I TOLD YOU LATTER . WILL CONT. TO MONITOR .
--- NOTE | 2022-11-25 23:40 | NUR ---
PT RESTING ON BED , WATCHING TV AT THIS TIME , NO S/SX OF ACUTE DISTRESS NOTED . CALL LIGHT / URINAL WITHIN REACH .
[2022-11-26] VITALS: BP 141/73
--- NOTE | 2022-11-26 01:22 | NUR ---
SLEEPING , CHEST RISE AND FALL EQUALLY , CALL LIGHT/URINAL WITHIN REACH
--- NOTE | 2022-11-26 03:58 | NUR ---
PT. AGREE FOR IV RE INSERTION NOW , BUT HE WANTS SMALL NEEDLE , WILL RE INSERT . Addendum: 11/26/22 at 0713 by Lakia Martinez RN AT 035 INSERT G24 IV NEEDLE ON R HAND , MIN. BLEEDING . PROCEDURE TOLERATED BY PT - WILL CONT. TO MONITOR
[2022-11-26 04:00] VITALS: BP 133/79
[2022-11-26] MEDS: VANCOMYCIN 1,500 MG in DEXTROSE 5% 500 ML IV SCH (04:00)
--- NOTE | 2022-11-26 04:00 | NUR ---
CALL ANGELINE FROM PHARMACY , I ASKING HER MY PT IS ON G24 IV NEEDLE , CAN'T ACCOMODATE 250CC/HR VANCO - PER ANGELINE IT OK THE VANCO WILL RUN FOR 125 PER HOUR , INSTEAD OF 250 - WILL CARRY OUT .
[2022-11-26] MEDS: HYDROcodone/APAP 5/325 MG 1 TAB TAB PO PRN ×2 (04:31→09:08)
--- NOTE | 2022-11-26 05:50 | NUR ---
PER ANDRADE MOORE HE DISCONNECTED THE ONGOING LUIS RIVERA. PT REQUESTED TO HIM TO CHANGE THE BED LINEN - WILL RE CONNECT .
--- NOTE | 2022-11-26 06:03 | NUR ---
WHEN I 'M ABOUT TO RE CONNECT THE IV VANCO - PT REFUSE , RE EDUCATES PT ABOUT THE IMPORTANCE OF ABX , BUT INSPITE OF IT , PT STILL REFUSING , PT TRYING TO REMOVE THE IV NEEDLE , BUT I RE EDUCATES HIM HE NEEDS IT , WILL SECURE THE IV NEEDLE W/ TAPE . Addendum: 11/26/22 at 0800 by Lakia Martinez RN INFORMED MICHAEL SANTOS ABOUT VANCO REFUSAL
--- NOTE | 2022-11-26 06:04 | NUR ---
PATIENT HAD NEW IV STARTED IN RIGHT HAND BY COVERING RN CARLOTTA. PATIENT CONTINUES TO ATTEMPT TO PULL THE IV OUT. WILL ENDORSE TO AM SHIFT TO ASK PHARMACY TO CHANGE TO ORAL MEDICATION FOR VANCOMYCIN. [email or web address]
[2022-11-26] MEDS: BLOOD GLUCOSE MONITORING 1 DEV DEV FS SCH ×2 (07:23→12:27)
[2022-11-26] MEDS: INSULIN LISPRO SLIDING SCALE 100 UNITS/ML VIAL SUBQ PRN ×2 (07:24→12:25)
--- NOTE | 2022-11-26 07:25 | NUR ---
RECEIVED REPORT FROM NIGHT NURSE HEATHER FOR CONTINUITY OF CARE. INITIAL ASSESSMENT DONE. NO C/O PAIN OR DISCOMFORT. CALL LIGHT KEPT WITHIN REACH. WILL CONTINUE TO MONITOR.
[2022-11-26 08:00] VITALS: BP 140/90
--- NOTE | 2022-11-26 08:00 | NUR ---
Patient's Plan of Care was discussed and reviewed with OANH: MAYNOR
[2022-11-26] MEDS ORDERED: ENOXAPARIN 40 MG/0.4 ML SYR SUBQ SCH (09:00)
[2022-11-26] MEDS ORDERED: CITALOPRAM 20 MG TAB PO SCH (09:00)
[2022-11-26] MEDS ORDERED: lisinopriL 20 MG TAB PO SCH (09:00)
[2022-11-26] MEDS: METOPROLOL 25 MG TAB PO SCH (09:09)
--- NOTE | 2022-11-26 09:09 | NUR ---
SCHEDULED MEDICATIONS GIVEN. TOLERATING WELL. PRN NORCO WAS GIVEN FOR PAIN MANAGEMENT.
--- NOTE | 2022-11-26 10:00 | NUR ---
IV ABT ROCEPHIN GIVEN BY DENILSON ZAFAR. TOLERATING WELL.
--- NOTE | 2022-11-26 10:22 | NUR ---
PATIENT HAS BEEN SCREENED AND CATEGORIZED MODERATE NUTRITION RISK. PATIENT WILL BE SEEN WITHIN 3-5 DAYS OF ADMISSION. ROSE HAWKINS RD
--- NOTE | 2022-11-26 11:04 | NUR ---
PRN MORPHINE IVP WAS GIVEN BY DENILSON ZAFAR. TOLERATING WELL.
--- NOTE | 2022-11-26 12:00 | NUR ---
COLLECTED URINE SPECIMEN. SEND TO LAB.
--- NOTE | 2022-11-26 12:27 | NUR ---
BS CHECKED 172. INSULIN WAS GIVEN PER SLIDING SCALE.
[2022-11-26 13:50] LABS: APPEARANCE,URINE CLEAR (CLEAR); BILIRUBIN,URINE NEGATIVE (NEGATIVE); BLOOD, URINE NEGATIVE (NEGATIVE); COLOR,URINE YELLOW (YELLOW); LEUKOCYTE ESTERASE ,URINE NEGATIVE (NEGATIVE); NITRITE, URINE NEGATIVE (NEGATIVE); PH,URINE 6.5 (5.0-9.0); UGLUCOSE NEGATIVE (NEGATIVE)
--- NOTE | 2022-11-26 14:05 | NUR ---
PT CAME TO STATION AND WANTED TO GO AGAINST [facility]. EXPLAINED RISK AND BENEFITS. CLINICAL LAB CLERK MADE AWARE. DR. DELGADO NOTIFIED.
--- NOTE | 2022-11-26 14:30 | NUR ---
PT LEFT AGAINST [facility]. IV AND ID BAND REMOVED.
--- NOTE | 2022-11-26 15:22 | NUR ---
DC PLANNING ORDER: MET WITH PT AT BEDSIDE TO COMPLETE ASSESSMENT. PT STRUGGLED TO STAY ON TOPIC AND HAS TO BE REDIRECTED SEVERAL TIMES THROUGHOUT. SPOKE WITH PT ABOUT LAST VISIT AND AMA. PT REPORTED HE HAD TO LEAVE. PT REPORTS THE NEED TO SMOKE, NOTIFIED PT HE IS NOT ALLOWED TO LEAVE THE FACILITY TO SMOKE. PT REPORTS CHRONIC HOMELESSNESS. PROVIDED PATIENT WITH HOMELESS RESOURCES, SUBSTANCE USE RESOURCES WELL , EMERGENCY ASSISTANCE RESOURCES. PT ACCEPTED ALL RESOURCES PROVIDED. PT REPORTS ONCE CLEARED FOR DC HE'D LIKE FOR [facility] TRANSPORT TO BE ARRANGED TO DROP HIM OFF [id number] [address] DC Addendum: 11/26/22 at 1528 by Reema Painter LATE ENTRY PT SEEN AT 1215
[2022-11-26 22:26] LABS: BARBITURATE, URINE NEGATIVE ng/ml (NEG <=200); BENZODIAZEPINE, URINE NEGATIVE ng/mL (NEG <=200); CANNABINOID, URINE NEGATIVE ng/mL (NEG <=50); COCAINE, URINE NEGATIVE ng/mL (NEG <=300); OPIATE, URINE POSITIVE ng/mL (NEG <=2000); PHENCYCLIDINE SCREEN,URINE NEGATIVE ng/mL (NEG <=25)
== END 2022-11-26 14:30 | disposition left against medical advice (07) | DRG 380 ==
LOC: MED 02:53 → MTU 09:24
PROVIDERS: ADMIT Internal Medicine; ATTEND Internal Medicine
DX: E11.621 Type 2 diabetes mellitus with foot ulcer (principal); L97.529 Non-pressure chronic ulcer of other part of left foot with unspecified severity; E87.1 Hypo-osmolality and hyponatremia; L03.116 Cellulitis of left lower limb; I10 Essential (primary) hypertension; J44.9 Chronic obstructive pulmonary disease, unspecified; Z20.822 Contact with and (suspected) exposure to COVID-19; G89.29 Other chronic pain; F15.10 Other stimulant abuse, uncomplicated; Z79.4 Long term (current) use of insulin; Z79.899 Other long term (current) drug therapy; Z59.00 Homelessness unspecified
CPT/HCPCS: 36415; 71045; 80053; 80305; 81001; 81003; 82550; 82553; 82948; 83605; 83874; 83880; 85025; 87040; 87081; 87086; 96374; 96375; 99285; J0330; J0696; J1650; J1815; J2270; J2543; J3370; J3490; J7060

== ENCOUNTER 2022-12-18 23:04 | Emergency (ER) | payer OTHER ==
[~2022-12-18] VITALS: Ht 188 cm; Wt 108.9 kg
[2022-12-18 23:06] VITALS: BP 172/98
--- NOTE | 2022-12-18 23:11 | NUR ---
BIBA c/o 9/10 left foot pain. left foot with open wound, left leg with multiple open wounds. per pt, was previously in [facility] and was treated for same condition. right BKA, and left toe amputee.
--- NOTE | 2022-12-18 23:28 | NUR ---
Dr. Garcia by bedside
[2022-12-18] MEDS ORDERED: KETOROLAC 60 MG/2 ML VIAL IM ONE (23:35)
[2022-12-18] MEDS ORDERED: IBUP-2213 PO (23:49)
[2022-12-18] MEDS ORDERED: CEPH500C16 PO (23:49)
[2022-12-19] VITALS: BP 150/78
--- NOTE | 2022-12-19 00:26 | NUR ---
Patient discharged with v/s stable. Written and verbal after care instructions given and explained. New rx keflex, ibuprofen. Patient verbalized understanding. Ambulatory with steady gait. All questions addressed prior to discharge. Advised to follow up with PMD.
== END 2022-12-19 | disposition home or self-care (01) ==
LOC: MED 23:04
DX: E11.621 Type 2 diabetes mellitus with foot ulcer (principal); J44.9 Chronic obstructive pulmonary disease, unspecified; I10 Essential (primary) hypertension; Z79.4 Long term (current) use of insulin; Z79.899 Other long term (current) drug therapy; Z98.890 Other specified postprocedural states
CPT/HCPCS: 96372; 99283; J1885

== ENCOUNTER 2022-12-19 23:56 | Inpatient (IN) | payer OTHER ==
[~2022-12-19] VITALS: Ht 182.9 cm; Wt 108.0 kg
[~2022-12-19 23:56] MED LIST changes: +CEPH500C16 PO; +IBUP-2213 PO
[2022-12-20 00:05] VITALS: BP 178/90
--- NOTE | 2022-12-20 00:12 | NUR ---
GLORIA DESAI TO BED #6
[2022-12-20] MEDS ORDERED: ZIPRASIDONE MESYLATE 20 MG/ML VIAL IM ONE (00:15)
[2022-12-20 00:40] LABS: BASOPHILS # (AUTO) 0.1 K/uL (0.00-0.22); EOSINOPHILS # (AUTO) 0.2 K/uL (0-0.4); EOSINOPHILS % (AUTO) 2.8 % (0.0-4.0); HEMATOCRIT 27.7 % (36-52); HEMOGLOBIN 9.1 g/dL (12.0-18.0); LYMPHOCYTES # (AUTO) 1.3 K/uL (2.0-11.5); LYMPHOCYTES % (AUTO) 15.7 % (20.5-51.1); MEAN CORPUSCULAR HEMOGLOBIN 25 pg (27-31); MEAN CORPUSCULAR HGB CONC 33 g/dL (33-37); MEAN CORPUSCULAR VOLUME 76.7 fL (80-94); MONOCYTES # (AUTO) 0.6 K/uL (0.8-1.0); MONOCYTES % (AUTO) 7.8 % (1.7-9.3); NEUTROPHILS % (AUTO) 72.7 % (42.2-75.2); PLATELET COUNT (AUTO) 271 K/uL (140-450); RED BLOOD CELL COUNT(AUTO) 3.61 MIL/uL (4.20-6.10); RED CELL DISTRIBUTION WIDTH 14.1 % (11.6-13.7); WHITE BLOOD COUNT (AUTO) 8.2 K/uL (4.8-10.8)
--- NOTE | 2022-12-20 00:45 | NUR ---
57YR OLD MALE BIB EMS C/O BEHAVORIAL . [facility] PLAC[facility] 5150 FOR HARM TO OTHERS. DENIES SI. PT IS ETOH POSITIVE. PT STATES HE USED PCP. PT WAS FOUND AT 7-11 HARRASSING BYSTANDERS. PT IS A R LEG AMPUTEE. USES A WHEELCHAIR TO GET AROUND BRIELLE YU HISTORIAN
[2022-12-20 01:07] LABS: ANION GAP 13.5 (8-16); ASPARTATE AMINOTRANSFERASE 15 U/L (15-37); CARBON DIOXIDE 24.1 mmol/L (21-32); CHLORIDE 99 mmol/L (98-107); GFR ARICAN-AMERICAN 99 mL/min (>90); GLUCOSE 214 mg/dL (74-106); POTASSIUM 3.6 mmol/L (3.5-5.1); SODIUM SERUM 133 mmol/L (136-145); TOTAL BILIRUBIN 0.3 mg/dL (0.0-1.0); UREA NITROGEN, BLOOD 15 mg/dL (7-18)
[2022-12-20 01:11] LABS: ACETAMINOPHEN < 0.5 ug/ml (10-30); SALICYLATE < 2.8 mg/dL (2.8-20.0)
--- NOTE | 2022-12-20 01:54 | NUR ---
COVID SWAB COLLECTED. NOVAL SWAB PENDING FOR COLLECTION
--- NOTE | 2022-12-20 03:15 | NUR ---
PT IS ASLEEP WITH HOB ELEVATED. ALL ITEMS HAVE BEEN REMOVED FROM ROOM FOR PT SAFTEY. PT IS IN VIEW FROM NURSING STATION
--- NOTE | 2022-12-20 04:34 | NUR ---
PT HAS BEEN INCONT OF URINE AND FECAS. PT CLEANED UP BY STAFF. ALL BELONGINGS BAGGED AND TAGGED
--- NOTE | 2022-12-20 06:05 | NUR ---
VERBAL ORDER FOR QSHIFT VITALS ENTERED
--- NOTE | 2022-12-20 07:54 | NUR ---
asleep in bed, no distress noted. urine specimen pending to be provided. MD aware.
--- NOTE | 2022-12-20 08:19 | NUR ---
PT PROVIDED WITH BREAKFAST AT THIS TIME. EATING QUIETLY. ALL NEEDS MET
[2022-12-20 08:29] LABS: APPEARANCE,URINE CLEAR (CLEAR); BILIRUBIN,URINE NEGATIVE (NEGATIVE); BLOOD, URINE NEGATIVE (NEGATIVE); COLOR,URINE YELLOW (YELLOW); LEUKOCYTE ESTERASE ,URINE NEGATIVE (NEGATIVE); NITRITE, URINE NEGATIVE (NEGATIVE); PH,URINE 6.5 (5.0-9.0); UGLUCOSE NEGATIVE (NEGATIVE)
[2022-12-20 09:18] LABS: CANNABINOID, URINE POSITIVE ng/mL (NEG <=50)
[2022-12-20 09:19] LABS: BARBITURATE, URINE NEGATIVE ng/ml (NEG <=200); BENZODIAZEPINE, URINE NEGATIVE ng/mL (NEG <=200); COCAINE, URINE NEGATIVE ng/mL (NEG <=300); OPIATE, URINE NEGATIVE ng/mL (NEG <=2000); PHENCYCLIDINE SCREEN,URINE NEGATIVE ng/mL (NEG <=25)
[2022-12-20] MEDS ORDERED: OLANZapine 5 MG ODT PO ONE (09:55)
[2022-12-20] MEDS: BLOOD GLUCOSE MONITORING 1 DEV DEV FS SCH ×3 (11:30→22:36)
--- NOTE | 2022-12-20 12:01 | NUR ---
Packet faxed to: [facility]
--- NOTE | 2022-12-20 12:50 | NUR ---
SPOKE WITH MELISSA BUTLER, GIVEN CLINICAL INFO FOR PLACEMENT. WILL CALL BACK FOR DECISION TO PLACE
[2022-12-20] MEDS: INSULIN LISPRO SLIDING SCALE 100 UNITS/ML VIAL SUBQ PRN ×2 (13:54→23:01)
[2022-12-20] MEDS ORDERED: HALOPERIDOL IM 5 MG/ML VIAL IM ONE (17:05)
--- NOTE | 2022-12-20 17:22 | NUR ---
[facility] s/w Peg- not able to mecially accommodate
--- NOTE | 2022-12-20 18:00 | NUR ---
PT URINATED ON BED, HAD USED THE URINAL TWICE EARLIER. PT BED SHEETS CHANGED, PT CLEANED. COOPERATED WITH PROCEDURE
--- NOTE | 2022-12-20 18:59 | NUR ---
[facility]
--- NOTE | 2022-12-20 19:55 | NUR ---
57 Y/O M PRESENTS WITH CELLULITIS L TOES AND R DKA. PT WAS PUT ON A HOLD XLAST NIGHT BY [facility] DUE TO A DANGER TO OTHERS. XLAST NIGHT PT APPEARED DRUNK AND ON METH. PT IS VERBALLY AGGRESSIVE, A&OX2, RESPIRATIONS EVEN AND UNLABORED. PT IS ON AMBULATORY USES WHEELCHAIR. PMH-DIABETES, HTN NKA
--- NOTE | 2022-12-20 20:30 | NUR ---
PT STATED "LEAVE ME THE FUCK ALONE ALL I WANT TO DO IS SLEEP" " TAKE THESE FUCKING RAILS DOWN I HATE THEM, MAKES ME FEEL LIKE HALFWAY I HATE HALFWAY. DONT TRY TO KEEP ME HERE. I WANT TO BURN DOWN ALL THE PRISONS."
--- NOTE | 2022-12-20 20:35 | NUR ---
PT HAS URINAL BEDSIDE
[2022-12-20] MEDS: OLANZapine 5 MG ODT PO SCH (21:00)
--- NOTE | 2022-12-20 22:30 | NUR ---
PT TOLERATING FOOD WELL, STATED HE WANTS TO GO BACK TO SLEEP HES VERY TIRED.
--- NOTE | 2022-12-21 04:06 | NUR ---
PT AWAITING ADMISSION AND RESTING IN ROOM. RESPIRATIONS EVEN AND UNLABORED. URINAL AT BEDSIDE.
--- NOTE | 2022-12-21 05:54 | NUR ---
PT TOLERATING FOOD WELL AT THE MOMENT. PT IS AWAKE AND ALERT. DENIES PAIN AT THE MOMENT. AWAITING ADMISSION. RESPIRATIONS EVEN AND UNLABORED
--- NOTE | 2022-12-21 07:27 | NUR ---
Report and continuation of care received from OANH Garcia.
--- NOTE | 2022-12-21 07:27 | NUR ---
Pt report given to LATOYA ZAFAR. Transfer of care at this time.
--- NOTE | 2022-12-21 08:36 | NUR ---
Patient sitting upright in semi-fowlers position with both eyes open. Denies pain at this time. Respirations even/unlabored. Bed locked in lowest position, side rails x 2.
--- NOTE | 2022-12-21 08:38 | NUR ---
Breakfast tray at bedside; pt completing meal. All pt needs met.
[2022-12-21] MEDS: BLOOD GLUCOSE MONITORING 1 DEV DEV FS SCH ×4 (08:45→20:03)
[2022-12-21] MEDS: OLANZapine 5 MG ODT PO SCH ×2 (08:48→20:12)
[2022-12-21] MEDS: INSULIN LISPRO SLIDING SCALE 100 UNITS/ML VIAL SUBQ PRN ×4 (08:59→20:16)
--- NOTE | 2022-12-21 10:15 | NUR ---
Patient resting on right side with both eyes closed in semi-fowlers position. Respirations even/unlabored. Bed locked in lowest position, side rails x 2 for pt safey. [address]
[2022-12-21] MEDS ORDERED: ONDANSETRON 4 MG/2 ML VIAL IVP PRN (14:00)
[2022-12-21] MEDS ORDERED: ACETAMINOPHEN 325 MG TAB PO PRN (14:00)
--- NOTE | 2022-12-21 14:15 | NUR ---
Patient appears to be resting comfortably in bed with both eyes closed. Respirations even and unlabored. [address]
[2022-12-21] MEDS ORDERED: ARIP5TAB8 PO (14:22)
[2022-12-21] MEDS ORDERED: BUPR-10 PO (14:22)
--- NOTE | 2022-12-21 14:30 | NUR ---
Patient sitting upright in position of comfort completing lunch meal at this time. All pt needs met.
--- NOTE | 2022-12-21 15:20 | NUR ---
Patient resting in semi-fowlers position with both eyes closed. Respirations even/unlabored. Bed locked in lowest position, side rails x 2 for pt safety. [address]
--- NOTE | 2022-12-21 15:47 | NUR ---
Patient will be admitted to care of Dr. Anton. Admited to Med-Surg. Will go to room 110A. Belongings list completed. Report to ANDRADE Shaw.
--- NOTE | 2022-12-21 15:48 | NUR ---
PATIENT REQUESTING A WHEELCHAIR AND AMA FORM AT THIS TIME.
[2022-12-21 16:00] VITALS: BP 140/77
--- NOTE | 2022-12-21 16:40 | NUR ---
PATIENT PERINEAL CARE, COFEE X3 CUPS AND ALSO ATTEMPT OF IV START.
--- NOTE | 2022-12-21 19:42 | NUR ---
RECEIVED REPORT FROM DAY SHIFT NURSE FOR CONTINUITY OF CARE. PT IS AWAKE AT THIS TIME. ALERT AND ORIENTED X3. PT IS CURRENTLY ON 5150 HOLD AND ON 1:1 MONITORING. ON ROOM AIR WITH NO SINGS OF DISTRESS AT THIS TIME. NO PAIN STATED AT THIS TIME. 1100 ML DRAINED FROM URINAL. IV SITE TO RIGHT FOREARM 22 GAUGE, WILL MONITOR 1:1 THROUGHOUT SHIFT.
[2022-12-21] MEDS ORDERED: OLANZapine 5 MG ODT PO SCH (21:00)
--- NOTE | 2022-12-21 22:12 | NUR ---
SCHEDULED MEDICATIONS ADMINISTERED WITH NO COMPLICATIONS. PT BLOOD GLUCOSE CHECK = 196, 2 UNITS OF HUMALOG WAS ADMINISTERED. WILL CONTINUE TO MONITOR.
[2022-12-21] MEDS: LORazepam 2 MG/ML VIAL IVP PRN (22:50)
--- NOTE | 2022-12-21 22:52 | NUR ---
PT STATED HE WAS VERY ANXIOUS AND ASKED IF HE COULD TAKE IV OUT. EDUCATED THE PT ON THE IMPORTANCE OF KEEPING IV SITE INTACT. PT VERBALIZED UNDERSTANDING. POC WAS DISCUSSED WITH RN: MIL. ATIVAN 1MG IVP PRN Q4H FOR AGITATION/ANXIETY WAS ADMINISTERED. PT TOLERATED WELL, WILL CONTINUE TO MONITOR.
--- NOTE | 2022-12-22 00:03 | NUR ---
PT SLEEPING SOUNDLY AT THIS TIME. RESPIRATIONS EVEN AND UNLABORED, CHEST RISE AND FALL NOTED. WILL CONTINUE TO MONITOR THE PT 1:1.
[2022-12-22 04:00] VITALS: BP 150/87
--- NOTE | 2022-12-22 05:14 | NUR ---
BATHED PT AND PERFORMED ANDRÉS CARE. SHEETS CHANGED. PATIENTS URINE OUTPUT = 1750. NO DISTRESS NOTED, WILL CONTINUE MONITORING THE PATIENT 1:1.
[2022-12-22] MEDS: INSULIN LISPRO SLIDING SCALE 100 UNITS/ML VIAL SUBQ PRN ×3 (06:26→20:41)
[2022-12-22] MEDS: BLOOD GLUCOSE MONITORING 1 DEV DEV FS SCH ×4 (06:31→20:41)
--- NOTE | 2022-12-22 06:31 | NUR ---
PT LAST BLOOD GLUCOSE CHECK = 199. 2 UNITS OF HUMALOG WAS ADMINISTERED. PT TOLERATED WELL. NO OTHER SIGNS OF DISTRESS NOTED, WILL ENDORSE TO DAY SHIFT NURSE FOR CONTINUITY OF CARE.
[2022-12-22 07:02] LABS: BASOPHILS # (AUTO) 0.1 K/uL (0.00-0.22); EOSINOPHILS # (AUTO) 0.3 K/uL (0-0.4); EOSINOPHILS % (AUTO) 5.3 % (0.0-4.0); HEMATOCRIT 30.3 % (36-52); HEMOGLOBIN 9.9 g/dL (12.0-18.0); LYMPHOCYTES # (AUTO) 1.8 K/uL (2.0-11.5); LYMPHOCYTES % (AUTO) 27.3 % (20.5-51.1); MEAN CORPUSCULAR HEMOGLOBIN 25 pg (27-31); MEAN CORPUSCULAR HGB CONC 33 g/dL (33-37); MEAN CORPUSCULAR VOLUME 77.6 fL (80-94); MONOCYTES # (AUTO) 0.5 K/uL (0.8-1.0); MONOCYTES % (AUTO) 8.3 % (1.7-9.3); NEUTROPHILS # (AUTO) 3.8 K/uL (1.8-7.7); NEUTROPHILS % (AUTO) 58.1 % (42.2-75.2); PLATELET COUNT (AUTO) 286 K/uL (140-450); RED BLOOD CELL COUNT(AUTO) 3.91 MIL/uL (4.20-6.10); RED CELL DISTRIBUTION WIDTH 13.8 % (11.6-13.7); WHITE BLOOD COUNT (AUTO) 6.5 K/uL (4.8-10.8)
[2022-12-22 07:17] LABS: ALBUMIN 2.6 g/dL (3.4-5.0); ANION GAP 10.9 (8-16); CARBON DIOXIDE 29.2 mmol/L (21-32); MAGNESIUM 1.8 mg/dL (1.8-2.4); POTASSIUM 4.1 mmol/L (3.5-5.1); TOTAL BILIRUBIN 0.2 mg/dL (0.0-1.0)
--- NOTE | 2022-12-22 07:30 | NUR ---
RECEIVED REPORT FROM MACHINIST NURSE, BOBBY, FOR CONTINUITY OF CARE. PT IN BED SLEEPING AT THIS TIME. RESPIRATIONS ARE EVEN AND UNLABORED ON ROOM AIR. NO SIGNS OF DISTRESS NOTED. PT IS CURRENTLY ON 5150 HOLD, SITTER AT DOORWAY. PT IS ON REGULAR DIET, TOLERATING WELL. ABD IS NONTENDER, NONDISTENDED WITH BOWEL SOUNDS PRESENT. LAST BOWEL MOVEMENT WAS LAST NIGHT. CALL LIGHT WITHIN REACH. ALL SAFETY MEASURES IN PLACE.
[2022-12-22 07:51] VITALS: BP 160/101
[2022-12-22] MEDS: OLANZapine 5 MG ODT PO SCH ×2 (09:00→20:38)
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
--- NOTE | 2022-12-22 09:48 | NUR ---
PT ASKING FOR COFFEE. GAVE PT DECAF COFFEE AND ASSISTED WITH CHANGING PT. PT TOLERATED WELL.
--- NOTE | 2022-12-22 11:20 | NUR ---
DC PLANNING ATTEMPTED TO MEET PT AT BEDSIDE TO COMPLETE ASSESSMENT, HOWEVER, PT HEAVILY SLEEPING. SW TO FOLLOW
--- NOTE | 2022-12-22 11:25 | NUR ---
PT BLOOD GLUCOSE WAS 225. COVERED WITH 4 UNITS INSULIN PER SLIDING SCALE.
--- NOTE | 2022-12-22 13:34 | NUR ---
CALLED [facility], DR. SULLIVAN SALES AND OPERATIONS TRAINEE FOR [place] PER CALL CENTER. MD WILL CALL UNIT WHEN AVAILABLE.
[2022-12-22] MEDS: LORazepam 2 MG/ML VIAL IVP PRN (14:07)
--- NOTE | 2022-12-22 14:07 | NUR ---
PT AGITATED. THRASHING AROUND BED, BEGINNING TO YELL. RN ADMINISTERED PRN ATIVAN.
--- NOTE | 2022-12-22 15:07 | NUR ---
WENT TO RE-ASSESS PT. PT IN BED SLEEPING AT THIS TIME. RESPIRATIONS ARE EVEN AND UNLABORED. NO SIGNS OF DISTRESS NOTED.
--- NOTE | 2022-12-22 15:19 | NUR ---
12/22/22 RD INITIAL ASSESSMENT COMPLETED PLEASE REFER TO NUTRITION ASSESSMENT UNDER CARE ACTIVITY FOR ESTIMATED NUTRITIONAL NEEDS. 1. RECOMMEND [id number] DIET WITH [facility] 1/DAY TO PROMOTE WOUND HEALING TOLERATED - [facility] PROVIDES 60 KCAL AND 15 GM PROTEIN DAILY 2. MONITOR PO INTAKE AND NUTRITION RELATED LAB VALUES 3. RD TO FOLLOW-UP 7 DAYS, LOW RISK REVIEWED BY ROSE HAWKINS RD
[2022-12-22 16:00] VITALS: BP 153/78
--- NOTE | 2022-12-22 16:51 | NUR ---
BLOOD GLUCOSE WAS 144. NO INSULIN COVERAGE NEEDED PER SLIDING SCALE.
--- NOTE | 2022-12-22 17:28 | NUR ---
SPOKE WITH DR BURDICK FOR RE-EVAL FOR PT [address] BURDICK SPOKE WITH PT. PER DR BURDICK, PT IS PSYCHIATRICLY CLEARED. NO NEED TO RENEW 5150 HOLD.
[2022-12-22 17:37] VITALS: BP 148/92
--- NOTE | 2022-12-22 19:12 | NUR ---
ENDORSED PT TO MELTER SUPERVISOR OXYGEN FURNACE NURSE, MARIBEL, FOR CONTINUITY OF CARE. PT IS STABLE.
--- NOTE | 2022-12-22 19:13 | NUR ---
RECEIVED REPORT FROM DAY SHIFT NURSE FLOWER FOR CONTINUITY OF CARE. PT AWAKE IN BED. RESPIRATIONS EVEN AND UNLABORED ON RA. DENIES PAIN. DENIES HEARING VOICES OR SEEING THINGS. POC DISCUSSED. REPORT GIVEN TO ANDRADE JIMENEZ. ASSUMED CARE AND SITTER RESPONSIBILITY. SAFETY PRECAUTIONS IN PLACE. PER ENDORSEMENT, 5150 HOLD WILL 12/22/22 AT 2330. TELEPSYCHE DONE TODAY AND PT DOES NOT MEET REQUIREMENT TO EXTEND HOLD.
--- NOTE | 2022-12-22 19:30 | NUR ---
PT REQUESTED TO GET CHANGED. VERY AGGRESSIVE AND SPOKE HARSH LANGUAGE WHEN ASKED TO WAIT BECAUSE NURSE NEEDED TO GET SUPPLIES. PT REMOVED DIAPER FILLED WITH FECES AND URINE AND THREW ON THE FLOOR. PT RE-ORIENTED TO PLACE AND SITUATION AND WAS ADVISED TO USE URINAL. PT WAS CLEANED AND CHANGED. REMAINED COMFORTABLY IN BED.
[2022-12-22 20:00] VITALS: BP 149/65
--- NOTE | 2022-12-22 20:44 | NUR ---
ADMINISTERED DUE MEDS. PT COMPLIANT, TOOK HIS MED.
--- NOTE | 2022-12-22 22:00 | NUR ---
Patient's Plan of Care was discussed and reviewed with OANH [facility]
--- NOTE | 2022-12-23 03:55 | NUR ---
PT AWAKE, REQUESTED SNACKS. SNACKS GIVEN. PT COMMUNICATING APPROPRIATELY.
[2022-12-23 04:00] VITALS: BP 140/72
[2022-12-23] MEDS: INSULIN LISPRO SLIDING SCALE 100 UNITS/ML VIAL SUBQ PRN ×2 (07:13→11:51)
[2022-12-23] MEDS: BLOOD GLUCOSE MONITORING 1 DEV DEV FS SCH ×2 (07:13→11:49)
--- NOTE | 2022-12-23 07:25 | NUR ---
GAVE BEDSIDE REPORT TO RN MEHRAN FOR CONTINUITY OF CARE. PT IS STABLE.
[2022-12-23] MEDS: OLANZapine 5 MG ODT PO SCH (09:25)
--- NOTE | 2022-12-23 16:36 | NUR ---
IV REMOVED, BELONGINGS RETURNED. PT ESCORTED TO [facility].
--- NOTE | 2022-12-28 09:13 | NUR ---
THEN CALLED DR MOORE'S OFFICE LOCATED AT [address] [place] [address]. SPOKE WITH REJI WHO SAID DO TO HIGH LEVEL OF NO SHOW PATIENT NEED TO CALL HIM SELF AND MAKE APPOINTMENT.CALLED PATIENT TO INFORM ON ABOVE INFORMATION BUT PATIENT DIDN'T ANSWER THE PHONE ON MULTIPLE OCCASIONS AND NO VOICE MAIL IS AVAILABLE.
== END 2022-12-23 16:25 | disposition home or self-care (01) | DRG 816 ==
LOC: MED 23:56 → MTU 12-21 14:00
PROVIDERS: ADMIT Hospitalist; ATTEND Hospitalist
DX: T51.0X1A Toxic effect of ethanol, accidental (unintentional), initial encounter (principal); G92.8 Other toxic encephalopathy; E44.0 Moderate protein-calorie malnutrition; E11.621 Type 2 diabetes mellitus with foot ulcer; F15.10 Other stimulant abuse, uncomplicated; F20.9 Schizophrenia, unspecified; E11.65 Type 2 diabetes mellitus with hyperglycemia; E87.6 Hypokalemia; F32.A Depression, unspecified; F12.10 Cannabis abuse, uncomplicated; Z20.822 Contact with and (suspected) exposure to COVID-19; I10 Essential (primary) hypertension; Z79.899 Other long term (current) drug therapy; Z79.1 Long term (current) use of non-steroidal anti-inflammatories (NSAID); Z68.32 Body mass index [BMI] 32.0-32.9, adult; F10.229 Alcohol dependence with intoxication, unspecified; Y90.3 Blood alcohol level of 60-79 mg/100 ml; L97.429 Non-pressure chronic ulcer of left heel and midfoot with unspecified severity
CPT/HCPCS: 36415; 80053; 80305; 81003; 82948; 83735; 85025; 87081; 87635-QW; 96372; 99285; C9803-CS; G0480; G0482; J1630; J2060; J3486

== ENCOUNTER 2022-12-30 15:41 | Emergency (ER) | payer OTHER ==
[~2022-12-30] VITALS: Ht 172.7 cm; Wt 90.7 kg
[~2022-12-30 15:41] MED LIST changes: +ARIP5TAB8 PO; +BUPR-10 PO
[2022-12-30 15:49] VITALS: BP 136/76
--- NOTE | 2022-12-30 16:07 | NUR ---
PT MOVED TO ER BED 6. [address]
--- NOTE | 2022-12-30 16:30 | NUR ---
Patient was given a bed bath, fresh clean gown and briefs applied.
[2022-12-30] MEDS ORDERED: NACL 0.9% 1,000 ML IV ONE (17:00)
[2022-12-30] MEDS ORDERED: MORPHINE SULFATE 4 MG/ML SYR IM ONE (17:00)
[2022-12-30 17:08] LABS: BASOPHILS # (AUTO) 0.1 K/uL (0.00-0.22); BASOPHILS % (AUTO) 0.7 % (0.0-2.0); EOSINOPHILS # (AUTO) 0.3 K/uL (0-0.4); EOSINOPHILS % (AUTO) 3.7 % (0.0-4.0); HEMATOCRIT 27.5 % (36-52); HEMOGLOBIN 9.1 g/dL (12.0-18.0); LYMPHOCYTES # (AUTO) 1.4 K/uL (2.0-11.5); LYMPHOCYTES % (AUTO) 16.6 % (20.5-51.1); MEAN CORPUSCULAR HEMOGLOBIN 25 pg (27-31); MEAN CORPUSCULAR HGB CONC 33 g/dL (33-37); MEAN CORPUSCULAR VOLUME 74.7 fL (80-94); MONOCYTES # (AUTO) 0.7 K/uL (0.8-1.0); MONOCYTES % (AUTO) 7.9 % (1.7-9.3); NEUTROPHILS % (AUTO) 71.1 % (42.2-75.2); PLATELET COUNT (AUTO) 325 K/uL (140-450); RED BLOOD CELL COUNT(AUTO) 3.68 MIL/uL (4.20-6.10); RED CELL DISTRIBUTION WIDTH 14.3 % (11.6-13.7); WHITE BLOOD COUNT (AUTO) 8.5 K/uL (4.8-10.8)
--- NOTE | 2022-12-30 17:20 | NUR ---
57 y/o male biba from [facility] for c/o 5150. Per EMS, patient was at [facility] and was incoherently speaking to staff when asked to leave. Patient was noted to be sitting on wheelchair, covered in urine and feces. [place] [employer] was put patient on a 5150 for gravely disabled. Patient is noted to have right Below Knee Amputation. Patient also has all Left Toes amputated. Patient's left stein is noted with multiple open areas with redness and heat noted. Patient is noted to have redness to diaper area. Patient has an open area to Left ring finger. Medical History: Schizo, Bipolar, Right BKA, Left Toes Amputated NKDA
[2022-12-30 17:30] LABS: ANION GAP 7.8 (8-16); CARBON DIOXIDE 28.8 mmol/L (21-32); POTASSIUM 3.6 mmol/L (3.5-5.1); TOTAL BILIRUBIN 0.5 mg/dL (0.0-1.0)
[2022-12-30 17:34] LABS: APPEARANCE,URINE CLEAR (CLEAR); BILIRUBIN,URINE NEGATIVE (NEGATIVE); BLOOD, URINE NEGATIVE (NEGATIVE); COLOR,URINE YELLOW (YELLOW); LEUKOCYTE ESTERASE ,URINE TRACE (NEGATIVE); NITRITE, URINE NEGATIVE (NEGATIVE); PH,URINE 6.5 (5.0-9.0); UGLUCOSE NEGATIVE (NEGATIVE)
[2022-12-30 17:40] LABS: BARBITURATE, URINE NEGATIVE ng/ml (NEG <=200)
[2022-12-30 17:41] LABS: BENZODIAZEPINE, URINE NEGATIVE ng/mL (NEG <=200); CANNABINOID, URINE POSITIVE ng/mL (NEG <=50); COCAINE, URINE NEGATIVE ng/mL (NEG <=300); OPIATE, URINE NEGATIVE ng/mL (NEG <=2000); PHENCYCLIDINE SCREEN,URINE NEGATIVE ng/mL (NEG <=25)
[2022-12-30 17:43] LABS: RBC,URINE 0-5 /HPF (0-5)
[2022-12-30] MEDS ORDERED: cefTRIAXone 1,000 MG VIAL ONE (17:45)
[2022-12-30 17:54] LABS: ACETAMINOPHEN < 0.5 ug/ml (10-30); SALICYLATE < 2.8 mg/dL (2.8-20.0)
--- NOTE | 2022-12-30 18:11 | NUR ---
PT MEDICALLY CLEARED BY DR BRINK AT THIS TIME
--- NOTE | 2022-12-30 19:17 | NUR ---
Dr. Paredes, psychiatrist, evaluating patient via Telepsych.
--- NOTE | 2022-12-30 19:23 | NUR ---
Report given to OANH Howard for transfer of care.
--- NOTE | 2022-12-30 19:56 | NUR ---
TELEPSYCH DONE WITH PT
--- NOTE | 2022-12-30 20:48 | NUR ---
PT RESTING IN BED WITH HOB ELEVATED. PT WAS PROVIDED FOOD . WAS INCONT OF URINE PT CLEANED WITH ASSIST
--- NOTE | 2022-12-30 20:56 | NUR ---
PT TO TRANSFER PENDING
--- NOTE | 2022-12-31 00:09 | NUR ---
PT SLEEPING WITH HOB ELEVATED. RESP EVEN AND UNLABORED
--- NOTE | 2022-12-31 02:17 | NUR ---
3 SUTURES PLACED ON UPPER R EYEBROW LACERATION
--- NOTE | 2022-12-31 02:28 | NUR ---
FOOD PROVIDED FOR PT
--- NOTE | 2022-12-31 05:18 | NUR ---
PT SLEEPING HOB ELEVATED. PT IS INCONT AT TIMES . RESP EVEN AND UNLABORED.
--- NOTE | 2022-12-31 07:30 | NUR ---
PT ASLEEP, EASILY AROUSABLE. ATE BREAKFAST, TOLERATED WELL, CONSUMED 100% AND REQUESTED FOR COFFEE, PROVIDED BY STAFF.
--- NOTE | 2022-12-31 07:31 | NUR ---
Packet faxed to: [facility]
[2022-12-31] MEDS: LITHIUM CARBONATE 300 MG TAB PO SCH ×2 (09:00→22:08)
[2022-12-31] MEDS ORDERED: LITHIUM CARBONATE 300 MG TAB PO SCH (09:00)
[2022-12-31] MEDS ORDERED: CITALOPRAM 20 MG TAB PO SCH (09:00)
[2022-12-31] MEDS ORDERED: GABAPENTIN 300 MG CAP PO ONE (09:00)
[2022-12-31] MEDS ORDERED: cefTRIAXone 1,000 MG VIAL ONE ×2 (09:55→21:31)
[2022-12-31] MEDS ORDERED: LORazepam 1 MG TAB PO ONE (12:20)
--- NOTE | 2022-12-31 12:55 | NUR ---
NO AGGRESSIVE BEHAVIOR BUT PT IS HYPERACTIVE AND TALKATIVE AND PICKING ON LEG WOUNDS, ADVISED THAT IT IS STARTING TO BLEED. MEDICATED ORDERED
[2022-12-31] MEDS ORDERED: HALOPERIDOL IM 5 MG/ML VIAL IM ONE (16:35)
--- NOTE | 2022-12-31 16:45 | NUR ---
PT BECAME EXTREMELY AGITATED "IM LAYING ON A LOT OF PEE!" PT USES URINAL AND OCCASIONALLY URINATES ON THE BED
--- NOTE | 2022-12-31 20:28 | NUR ---
PT IS SLEEPING WITH HOB ELEVATED. RESP EVEN AND UNLABORED. PENDING ADMISSON
--- NOTE | 2023-01-01 01:58 | NUR ---
PT SLEEPING WITH HOB ELEVATED. RESP EVEN AND UNLABORED.
--- NOTE | 2023-01-01 04:36 | NUR ---
FOOD PROVIDED TO PT
--- NOTE | 2023-01-01 07:20 | NUR ---
REPORT RECEIVED FROM MIESHA DE LEÓN ASSUMED CARE AT THIS TIME Addendum: 01/01/23 at 0816 by PHSEP [address]ED 12/30/22 @1540 BY [place] MOTA
--- NOTE | 2023-01-01 07:32 | NUR ---
pt awake and at rest. in view. provided w/ clean warm blankets.
[2023-01-01 07:56] VITALS: BP 133/79
--- NOTE | 2023-01-01 07:57 | NUR ---
pt provided w/ breakfast. pt awake and eating in bed
[2023-01-01] MEDS: LITHIUM CARBONATE 300 MG TAB PO SCH (10:07)
--- NOTE | 2023-01-01 10:34 | NUR ---
PT ON TELEPSYCH W/ MD BURDICK
--- NOTE | 2023-01-01 10:40 | NUR ---
PER MD BURDICK, PT OFF HOLD AND OK FOR D/C. ISAMRA MADE AWARE. SECURITY CALLED FOR PB
--- NOTE | 2023-01-01 11:25 | NUR ---
IV removed, catheter intact and site benign. Applied folded 4x4 gauze and tape to stop bleeding.
--- NOTE | 2023-01-01 11:31 | NUR ---
Patient discharged with v/s stable. Written and verbal after care instructions given and explained. Patient verbalized understanding. Wheel Chair Assisted OUT . All questions addressed prior to discharge. Advised to follow up with PMD. HOMELESS AND MENTAL HEALTH PACKETS PROVIDED
--- NOTE | 2023-01-01 11:35 | NUR ---
The patient's care was reviewed and supervised by ED Agency Nurse 8, RN, RN.
== END 2023-01-01 11:31 | disposition home or self-care (01) ==
LOC: MED 15:41
DX: L03.116 Cellulitis of left lower limb (principal); R45.851 Suicidal ideations; I10 Essential (primary) hypertension; F15.10 Other stimulant abuse, uncomplicated; F12.10 Cannabis abuse, uncomplicated; Z20.822 Contact with and (suspected) exposure to COVID-19; E11.621 Type 2 diabetes mellitus with foot ulcer; J44.9 Chronic obstructive pulmonary disease, unspecified; F20.9 Schizophrenia, unspecified; Z98.890 Other specified postprocedural states; Z79.899 Other long term (current) drug therapy; Z79.2 Long term (current) use of antibiotics; Z79.1 Long term (current) use of non-steroidal anti-inflammatories (NSAID); Z79.4 Long term (current) use of insulin
CPT/HCPCS: 36415; 80053; 80305; 81001; 83605; 83690; 85025; 87040; 87086; 87426; 87635; 96361; 96365; 96366; 96372; 96376; 99285; C9803; G0480; G0482; J0696; J1630; J2270; J7030; U0005; J7060

== ENCOUNTER 2023-01-01 16:16 | Emergency (ER) | payer OTHER ==
[~2023-01-01] VITALS: Ht 172.7 cm; Wt 79.4 kg
[2023-01-01 16:19] VITALS: BP 126/80
--- NOTE | 2023-01-01 16:26 | NUR ---
PATIENT BIB [place] [employer]. PATIENT EXAMINED BY DR.DELA MACARIO. PATIENT MEDICALLY CLEARED AND RELEASED IN CUSTODY IN STABLE CONDITION. ORIGINAL PRE-BOOK FORM GIVEN TO OFFICER.
== END 2023-01-01 16:26 ==
LOC: MED 16:16
DX: F31.9 Bipolar disorder, unspecified; J44.9 Chronic obstructive pulmonary disease, unspecified; I25.10 Atherosclerotic heart disease of native coronary artery without angina pectoris; I10 Essential (primary) hypertension; E11.9 Type 2 diabetes mellitus without complications; Z79.4 Long term (current) use of insulin; Z79.899 Other long term (current) drug therapy
CPT/HCPCS: 99283

== ENCOUNTER 2023-01-19 01:54 | Emergency (ER) | payer OTHER ==
[~2023-01-19] VITALS: Ht 188 cm; Wt 76.2 kg
[2023-01-19 02:05] VITALS: BP 139/90
--- NOTE | 2023-01-19 02:10 | NUR ---
TO BED VIA WHEELCHAIR
--- NOTE | 2023-01-19 02:22 | NUR ---
Dr. Tolentino examining patient.
[2023-01-19] MEDS ORDERED: CEPH500C16 PO (02:40)
--- NOTE | 2023-01-19 02:48 | NUR ---
Provided Sanwiches and juice as request.
[2023-01-19 03:01] VITALS: BP 134/84
[2023-01-19] MEDS: cephALEXin 500 MG CAP PO ONE (03:01)
--- NOTE | 2023-01-19 03:04 | NUR ---
Patient discharged with v/s stable. Written and verbal after care instructions given and explained. Patient alert, oriented and verbalized understanding of instructions. All questions addressed prior to discharge. ID band removed. Patient advised to follow up with PMD. Rx of Keflex sent to preferred pharmacy. Patient educated on indication of medication including possible reaction and side effects. Opportunity to ask questions provided and answered.
== END 2023-01-19 03:04 | disposition home or self-care (01) ==
LOC: MED 01:54
DX: S81.801A Unspecified open wound, right lower leg, initial encounter (principal); S81.802A Unspecified open wound, left lower leg, initial encounter; L03.116 Cellulitis of left lower limb; E11.9 Type 2 diabetes mellitus without complications; J44.9 Chronic obstructive pulmonary disease, unspecified; I10 Essential (primary) hypertension; Z79.4 Long term (current) use of insulin; Z79.899 Other long term (current) drug therapy; X58.XXXA Exposure to other specified factors, initial encounter; Y93.89 Activity, other specified; Y92.89 Other specified places as the place of occurrence of the external cause; Y99.8 Other external cause status
CPT/HCPCS: 99283

== ENCOUNTER 2023-03-25 01:40 | Emergency (ER) | payer MEDICAID, OTHER ==
[~2023-03-25] VITALS: Ht 185.4 cm; Wt 63.5 kg
[2023-03-25 01:55] VITALS: BP 119/79; PULSE 98; RESP 20; TEMP 98.5; O2SAT 97
[2023-03-25] MEDS ORDERED: ACET-2619 PO (03:11)
[2023-03-25] MEDS ORDERED: AMOX1TER15 PO (03:11)
[2023-03-25 03:38] VITALS: BP 119/79; PULSE 98; RESP 20; TEMP 98.5; O2SAT 97
--- NOTE | 2023-03-25 03:38 | NUR ---
Patient discharged with v/s stable. Written and verbal after care instructions given and explained. Patient alert, oriented and verbalized understanding of instructions. Ambulatory with steady gait. All questions addressed prior to discharge. ID band removed. Patient advised to follow up with PMD. Rx of TYLENOL, AUGMENTIN given. Patient educated on indication of medication including possible reaction and side effects. Opportunity to ask questions provided and answered.
[2023-04-02] MEDS ORDERED: SULF-59 PO (08:57)
== END 2023-03-25 03:38 | disposition home or self-care (01) ==
LOC: MED 01:40
DX: L03.116 Cellulitis of left lower limb (principal); E11.9 Type 2 diabetes mellitus without complications; I10 Essential (primary) hypertension; J44.9 Chronic obstructive pulmonary disease, unspecified; Z79.899 Other long term (current) drug therapy; Z79.4 Long term (current) use of insulin
CPT/HCPCS: 99283

== ENCOUNTER 2023-03-27 08:18 | Emergency (ER) | payer MEDICAID ==
[~2023-03-27] VITALS: Ht 188 cm; Wt 81.2 kg
[~2023-03-27 08:18] MED LIST changes: +ACET-2619 PO; +AMOX1TER15 PO
--- NOTE | 2023-03-27 08:21 | NUR ---
LAMIN CASTRO TO ER BED 01
[2023-03-27] MEDS ORDERED: VANCOMYCIN 1,000 MG in DEXTROSE 5% 250 ML IV ONE (08:50)
[2023-03-27] MEDS ORDERED: NACL 0.9% 1,000 ML IV ONE (08:50)
[2023-03-27 09:12] LABS: BASOPHILS # (AUTO) 0.1 K/uL (0.00-0.22); BASOPHILS % (AUTO) 0.8 % (0.0-2.0); EOSINOPHILS # (AUTO) 0.2 K/uL (0-0.4); EOSINOPHILS % (AUTO) 2.4 % (0.0-4.0); HEMATOCRIT 28.8 % (36-52); HEMOGLOBIN 9.3 g/dL (12.0-18.0); LYMPHOCYTES # (AUTO) 1.2 K/uL (2.0-11.5); LYMPHOCYTES % (AUTO) 16.6 % (20.5-51.1); MEAN CORPUSCULAR HEMOGLOBIN 24 pg (27-31); MEAN CORPUSCULAR HGB CONC 32 g/dL (33-37); MEAN CORPUSCULAR VOLUME 73.7 fL (80-94); MONOCYTES # (AUTO) 0.5 K/uL (0.8-1.0); MONOCYTES % (AUTO) 6.6 % (1.7-9.3); NEUTROPHILS # (AUTO) 5.3 K/uL (1.8-7.7); NEUTROPHILS % (AUTO) 73.6 % (42.2-75.2); PLATELET COUNT (AUTO) 252 K/uL (140-450); RED BLOOD CELL COUNT(AUTO) 3.91 MIL/uL (4.20-6.10); RED CELL DISTRIBUTION WIDTH 16.1 % (11.6-13.7); WHITE BLOOD COUNT (AUTO) 7.2 K/uL (4.8-10.8)
[2023-03-27 09:41] LABS: ANION GAP 10.2 (8-16); ASPARTATE AMINOTRANSFERASE 14 U/L (15-37); CARBON DIOXIDE 28.4 mmol/L (21-32); CHLORIDE 101 mmol/L (98-107); GFR ARICAN-AMERICAN 99 mL/min (>90); GLUCOSE 239 mg/dL (74-106); POTASSIUM 3.6 mmol/L (3.5-5.1); SODIUM SERUM 136 mmol/L (136-145); TOTAL BILIRUBIN 0.3 mg/dL (0.0-1.0); UREA NITROGEN, BLOOD 12 mg/dL (7-18)
[2023-03-27 09:53] LABS: ACETONE, SERUM NEGATIVE (NEGATIVE)
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
[2023-03-27] MEDS ORDERED: VANCOMYCIN 1,000 MG VIAL ONE (10:33)
[2023-03-27 10:49] VITALS: BP 149/85; PULSE 105; RESP 16; TEMP 98.1; O2SAT 98
[2023-03-27] MEDS ORDERED: ALBU0.0912 INH (11:01)
--- NOTE | 2023-03-27 12:03 | NUR ---
beto cox regarding patient stating michelle cox has his wheel chair michelle pd intellectual property lawyer is not there on weekends.
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
--- NOTE | 2023-03-27 14:43 | NUR ---
ANALYTICAL LABORATORY TECHNICIAN PROVIDED WHEELCHAIR, PT IN NEED OF CLOTHES, CALLED SECURITY FOR EXTRA SHORTS AND SHIRT. PT REFUSED LAST VS.
--- NOTE | 2023-03-27 14:51 | NUR ---
PT REFUSED DRESSING, HOW EVER WILLING TO TAKE SUPPLIES TO PLACE ON HIS OWN. GUAZE/SUPPLIES PROVIDED
--- NOTE | 2023-03-27 15:08 | NUR ---
Patient given written and verbal discharge instructions and verbalizes understanding. Given copies of tests performed during visit. Patient is awake, alert and oriented. Refuses offer of senior care placement. Given list of available shelters in surrounding areas. Pt provided RX for albuterol. Pt was provided supplies/dressings for Jer[place]. BKA dressing changes. Pt to F/U with PMD in 1-2 days. Pt instructed to return to the ER if condition worsens or to call 911 for an emergency. Pt left in hospital issued W/C. Pt in stable condition at discharge. Refused discharge vital signs.
== END 2023-03-27 15:08 | disposition home or self-care (01) ==
LOC: MED 08:18
DX: E11.621 Type 2 diabetes mellitus with foot ulcer (principal); I11.0 Hypertensive heart disease with heart failure; J44.9 Chronic obstructive pulmonary disease, unspecified; F31.9 Bipolar disorder, unspecified; Z79.4 Long term (current) use of insulin; Z79.899 Other long term (current) drug therapy; Z98.890 Other specified postprocedural states
CPT/HCPCS: 36415; 73590; 73630; 80053; 82009; 82550; 82553; 85025; 85651; 86140; 87040; 93005; 96365; 99285; J3370; J7030

== ENCOUNTER 2023-03-30 12:31 | Emergency (ER) | payer MEDICAID ==
[~2023-03-30] VITALS: Ht 185.4 cm; Wt 83.9 kg
[2023-03-30 12:47] VITALS: BP 151/86; PULSE 91; RESP 18; TEMP 97.3; O2SAT 98
[2023-03-30] MEDS ORDERED: ALBUTEROL SULFATE/IPRATROPIU 3 ML SOL IH ONE (13:20)
[2023-03-30 14:06] VITALS: PULSE 85; RESP 16; O2SAT 96
[2023-03-30] MEDS ORDERED: SULF-59 PO (14:20)
[2023-03-30] MEDS ORDERED: ALBU0.0912 INH (14:20)
[2023-03-30 15:35] VITALS: BP 150/85; PULSE 86; RESP 20; TEMP 97.7; O2SAT 97
--- NOTE | 2023-03-30 15:35 | NUR ---
Patient discharged with v/s stable. Written and verbal after care instructions given and explained. Patient alert, oriented and verbalized understanding of instructions. Wheel Chair Assisted. All questions addressed prior to discharge. ID band removed. Patient advised to follow up with PMD. Rx of PROVENTIL, BACTRIM given. Patient educated on indication of medication including possible reaction and side effects. Opportunity to ask questions provided and answered.
[2023-04-02] MEDS ORDERED: SULF-59 PO (08:57)
== END 2023-03-30 15:35 | disposition home or self-care (01) ==
LOC: MED 12:31
DX: E11.621 Type 2 diabetes mellitus with foot ulcer (principal); I11.0 Hypertensive heart disease with heart failure; J44.9 Chronic obstructive pulmonary disease, unspecified; J45.909 Unspecified asthma, uncomplicated; Z79.4 Long term (current) use of insulin; Z79.899 Other long term (current) drug therapy
CPT/HCPCS: 94640; 99283

== ENCOUNTER 2023-04-12 11:50 | Emergency (ER) | payer MEDICAID ==
[~2023-04-12] VITALS: Ht 185.4 cm; Wt 85.3 kg
[~2023-04-12 11:50] MED LIST changes: +SULF-59 PO
[2023-04-12 12:21] VITALS: BP 158/86; PULSE 82; RESP 20; TEMP 98; O2SAT 99
[2023-04-12 14:13] VITALS: O2SAT 99
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
[2023-04-12 14:44] VITALS: TEMP 98
--- NOTE | 2023-04-12 14:45 | NUR ---
xray at bedside
--- NOTE | 2023-04-12 15:04 | NUR ---
lab at bedside
[2023-04-12 15:31] LABS: BASOPHILS % (AUTO) 0.6 % (0.0-2.0); EOSINOPHILS # (AUTO) 0.1 K/uL (0-0.4); HEMATOCRIT 28.5 % (36-52); LYMPHOCYTES # (AUTO) 1.1 K/uL (2.0-11.5); LYMPHOCYTES % (AUTO) 22.8 % (20.5-51.1); MEAN CORPUSCULAR HEMOGLOBIN 23 pg (27-31); MEAN CORPUSCULAR HGB CONC 32 g/dL (33-37); MEAN CORPUSCULAR VOLUME 73.9 fL (80-94); MONOCYTES # (AUTO) 0.4 K/uL (0.8-1.0); MONOCYTES % (AUTO) 8.9 % (1.7-9.3); NEUTROPHILS # (AUTO) 3.2 K/uL (1.8-7.7); NEUTROPHILS % (AUTO) 64.7 % (42.2-75.2); PLATELET COUNT (AUTO) 224 K/uL (140-450); RED BLOOD CELL COUNT(AUTO) 3.86 MIL/uL (4.20-6.10); RED CELL DISTRIBUTION WIDTH 15.3 % (11.6-13.7); WHITE BLOOD COUNT (AUTO) 4.9 K/uL (4.8-10.8)
[2023-04-12 15:58] LABS: ANION GAP 11.1 (8-16); CARBON DIOXIDE 28.9 mmol/L (21-32); CREATININE 0.9 mg/dL (0.6-1.3); TOTAL BILIRUBIN 0.3 mg/dL (0.0-1.0)
--- NOTE | 2023-04-12 16:00 | NUR ---
pt provided w/ urinal and warm blanket
--- NOTE | 2023-04-12 17:32 | NUR ---
pt continues at rest w/ eyes closed. respirations even and unlabored. on bleacher operator. bed at lowest position, bed rails upx2.
[2023-04-12 18:06] VITALS: BP 122/79; PULSE 74; RESP 17; O2SAT 98
--- NOTE | 2023-04-12 18:06 | NUR ---
Patient discharged with v/s stable. Written and verbal after care instructions given and explained. Patient verbalized understanding. Wheel Chair Assisted with to home. All questions addressed prior to discharge. Advised to follow up with PMD.
--- NOTE | 2023-04-12 18:10 | NUR ---
The patient's care was reviewed and supervised by Luz Maria Ramos, RN, RN.
== END 2023-04-12 18:06 | disposition home or self-care (01) ==
LOC: MED 11:50
DX: E11.621 Type 2 diabetes mellitus with foot ulcer (principal); I11.0 Hypertensive heart disease with heart failure; J44.9 Chronic obstructive pulmonary disease, unspecified; Z79.4 Long term (current) use of insulin; Z79.899 Other long term (current) drug therapy
CPT/HCPCS: 36415; 73590; 80053; 83605; 85025; 85651; 86140; 87040; 99285; Q0092

== ENCOUNTER 2023-04-15 02:20 | Emergency (ER) | payer MEDICAID ==
[~2023-04-15] VITALS: Ht 185.4 cm; Wt 85.3 kg
[2023-04-15 02:25] VITALS: BP 151/89; PULSE 112; RESP 16; TEMP 97.8; O2SAT 98
--- NOTE | 2023-04-15 02:28 | NUR ---
to lobby a/w bed via wheel chair
[2023-04-15] MEDS ORDERED: HYDROcodone/APAP 5/325 MG 1 TAB TAB PO ONE (05:20)
[2023-04-15] MEDS ORDERED: cephALEXin 500 MG CAP PO ONE (05:20)
[2023-04-15 06:05] VITALS: BP 151/89; PULSE 112; RESP 16; TEMP 97.8; O2SAT 98
--- NOTE | 2023-04-15 06:05 | NUR ---
Patient discharged with v/s stable. Written and verbal after care instructions given and explained. Patient verbalized understanding. Ambulatory with steady gait. All questions addressed prior to discharge. Advised to follow up with PMD.
== END 2023-04-15 06:05 | disposition home or self-care (01) ==
LOC: MED 02:20
DX: L97.829 Non-pressure chronic ulcer of other part of left lower leg with unspecified severity (principal); J44.9 Chronic obstructive pulmonary disease, unspecified; E11.9 Type 2 diabetes mellitus without complications; I10 Essential (primary) hypertension; Z79.899 Other long term (current) drug therapy; Z79.4 Long term (current) use of insulin
CPT/HCPCS: 99283

== ENCOUNTER 2023-04-18 04:25 | Emergency (ER) | payer MEDICAID ==
[~2023-04-18] VITALS: Ht 185.4 cm; Wt 81.6 kg
--- NOTE | 2023-04-18 04:35 | NUR ---
pt in bathroom
[2023-04-18 04:43] VITALS: BP 137/81; PULSE 110; RESP 18; TEMP 97.6; O2SAT 100
--- NOTE | 2023-04-18 04:47 | NUR ---
PT TAKEN TO BED 1
--- NOTE | 2023-04-18 04:55 | NUR ---
FRANKIED examining patient.
[2023-04-18] MEDS ORDERED: NACL 0.9% 1,000 ML IV ONE (05:00)
--- NOTE | 2023-04-18 05:00 | NUR ---
As per ERMD, may have oral intake. Patient given 2 small cartons of milk and 2 sandwiches.
--- NOTE | 2023-04-18 05:20 | NUR ---
Nasal swab collected and sent to lab.
[2023-04-18 05:26] LABS: BASOPHILS # (AUTO) 0.1 K/uL (0.00-0.22); BASOPHILS % (AUTO) 0.7 % (0.0-2.0); EOSINOPHILS # (AUTO) 0.2 K/uL (0-0.4); EOSINOPHILS % (AUTO) 2.4 % (0.0-4.0); HEMOGLOBIN 9.3 g/dL (12.0-18.0); LYMPHOCYTES # (AUTO) 1.2 K/uL (2.0-11.5); LYMPHOCYTES % (AUTO) 15.8 % (20.5-51.1); MEAN CORPUSCULAR HEMOGLOBIN 23 pg (27-31); MEAN CORPUSCULAR HGB CONC 32 g/dL (33-37); MEAN CORPUSCULAR VOLUME 72.3 fL (80-94); MONOCYTES # (AUTO) 0.8 K/uL (0.8-1.0); MONOCYTES % (AUTO) 10.5 % (1.7-9.3); NEUTROPHILS # (AUTO) 5.5 K/uL (1.8-7.7); NEUTROPHILS % (AUTO) 70.6 % (42.2-75.2); PLATELET COUNT (AUTO) 329 K/uL (140-450); RED BLOOD CELL COUNT(AUTO) 4.01 MIL/uL (4.20-6.10); WHITE BLOOD COUNT (AUTO) 7.9 K/uL (4.8-10.8)
[2023-04-18 05:30] VITALS: BP 137/83; PULSE 104; RESP 18; TEMP 97.6; O2SAT 100
[2023-04-18 05:36] LABS: ANION GAP 11.3 (8-16); CARBON DIOXIDE 28.5 mmol/L (21-32); POTASSIUM 3.8 mmol/L (3.5-5.1)
--- NOTE | 2023-04-18 05:37 | NUR ---
X-ray at bedside.
[2023-04-18] MEDS ORDERED: KETOROLAC 15 MG/ML VIAL IVP ONE (06:30)
--- NOTE | 2023-04-18 06:32 | NUR ---
Per Rebecca Jacobson RN, NaCl 0.9 1L started at 0532 and stopped at 0632. ED director aware.
--- NOTE | 2023-04-18 07:00 | NUR ---
Patient stated he wants to leave the ER after attempting to collect urine sample. Explained to patient the risks of going against medical advice, patient verbalized full understanding and still wants to go AMA. ER MD, Dr. Carney, made aware. Patient signed the AMA form.
--- NOTE | 2023-04-18 07:00 | NUR ---
Unable to do pain reassessment for Toradol as patient left against medical advice at 0700.
--- NOTE | 2023-04-18 07:00 | NUR ---
Patient does not wish to proceed with medical care recommended by Dr. Ross/Angelika. Patient given information related to possible complications, up to and including , which could occur as a result of leaving hospital at this time. Patient verbalizes understanding of risks involved leaving against medical advice. Patient has signed AMA form.
== END 2023-04-18 07:00 | disposition left against medical advice (07) ==
LOC: MED 04:25
DX: R42 Dizziness and giddiness (principal); J44.9 Chronic obstructive pulmonary disease, unspecified; E11.9 Type 2 diabetes mellitus without complications; I10 Essential (primary) hypertension; Z20.822 Contact with and (suspected) exposure to COVID-19; Z79.899 Other long term (current) drug therapy; Z79.4 Long term (current) use of insulin
CPT/HCPCS: 36415; 71045; 80048; 85025; 87426; 96361; 96374; 99284; J1885; J7030; Q0092

== ENCOUNTER 2023-07-25 00:15 | Emergency (ER) | payer MEDICAID ==
[~2023-07-25] VITALS: Ht 182.9 cm; Wt 80.7 kg
[2023-07-25 00:31] VITALS: BP 169/87; PULSE 84; RESP 18; TEMP 98.3; O2SAT 96
== END 2023-07-25 04:10 | disposition home or self-care (01) ==
LOC: MED 00:15
DX: M79.662 Pain in left lower leg (principal); Z48.00 Encounter for change or removal of nonsurgical wound dressing; I11.9 Hypertensive heart disease without heart failure; J44.9 Chronic obstructive pulmonary disease, unspecified; E11.9 Type 2 diabetes mellitus without complications; Z79.899 Other long term (current) drug therapy; Z79.4 Long term (current) use of insulin
CPT/HCPCS: 99281